=== PATIENT | male | born 1990 | race Caucasian/White ===

== ENCOUNTER 2017-08-02 04:48 | Emergency (ER) | payer BC ==
[~2017-08-02] VITALS: Ht 198.1 cm; Wt 181.5 kg
[2017-08-02 04:51] VITALS: TEMP 37.1; Ht 198.1 cm; Wt 181.5 kg
--- NOTE | 2017-08-02 05:13 | EMERGENCY ROOM VISIT NOTE ---
History Report prepared by Farhan: Jhony Rice Under the Supervision of: Dr. Lisa Erickson D.O. First contact with patient: 04:56 Chief Complaint: ABDOMINAL PAIN Stated Complaint: ABDOMINAL AND BACK PAIN History of Present Illness The patient is a 27 year old male who presents to the Emergency Room with complaints of constant RUQ abdominal pain that began recently. Patient states the pain radiates to his back. He adds that pressure, movement, and lying down exacerbate the pain. He describes the pain as "dull". He adds that the pain is "sharp" with movement. He states he had similar symptoms a week ago. He has associated symptoms of nausea that began tonight. He denies vomiting. Patient adds that he took Aleve PM 3 hours ago. He states he ate noodles 4 hours ago. Patient states he has no health problems. Source of History: patient Onset: Recently Position: abdomen (RUQ) Quality: dull Timing: constant Modifying Factors (Worsening): movement, other (Pressure) Associated Symptoms: + nausea, No vomiting Review of Systems See HPI for pertinent positives & negatives. A total of 10 systems reviewed and were otherwise negative. Past Medical & Surgical Medical Problems: (1) Obesity Family History Hypertension Social History Smoking Status: Never Smoker Marital Status: single Occupation Status: employed Current/Historical Medications No Active Prescriptions or Reported Meds Allergies Coded Allergies: No Known Allergies (Unverified , 08/02/17) Physical Exam Vital Signs Date Time Temp Pulse Resp B/P (MAP) Pulse Ox O2 Delivery O2 Flow Rate FiO2 08/02/17 07:09 74 20 110/70 96 Room Air 08/02/17 05:30 81 08/02/17 04:51 37.1 76 20 187/112 98 Room Air Physical Exam General: Morbidly obese male patient who is uncomfortable on exam HEENT: Head - normocephalic and atraumatic Pupils are equal, round, and reactive to light. Extraocular eye muscles are intact, and sclera are anicteric. Nose - moist nasal mucosa without discharge. Mouth - moist buccal mucosa. Oropharynx is nonerythematous and there is no tonsillar exudate or edema noted. Neck: Supple; no cervical lymphadenopathy. Heart: Regular rate and rhythm. There is a normal S1 and S2 with no murmurs, clicks, or gallops appreciated. Lungs: Clear to auscultation bilaterally with no wheezes, rales, or rhonchi. Abdomen: Soft, completely nontender, nondistended, with good bowel sounds. There are no palpable pulsatile masses or hepatosplenomegaly. There is no guarding, rigidity, or rebound noted. Extremities: No evidence of cyanosis, clubbing, or edema. There are easily palpable peripheral pulses. Skin: warm and dry with good turgor and no rashes. Medical Decision & Procedures ER Provider Diagnostic Interpretation: Radiology results as stated below per my review and the radiologist's interpretation: CHEST 2 VIEWS ROUTINE HISTORY: 27 years-old Male right lower chest pain acute atypical right-sided chest pain COMPARISON: Portable chest radiograph 2013 TECHNIQUE: PA and lateral views of the chest FINDINGS: Cardiomediastinal and hilar silhouettes are within normal limits. Mild right hemidiaphragmatic elevation. No pneumothorax, pleural effusion, focal airspace consolidation or overt pulmonary edema. The bones of the chest appear grossly intact. IMPRESSION: No acute process. The above report was generated using voice recognition software. It may contain grammatical, syntax or spelling errors. Electronically signed by: Jamie Berg M.D. 08/02/2017 6:47 AM GALLBLADDER-ABD LIMITED HISTORY: 27 years-old Male eval for RUQ pain acute right upper quadrant abdominal pain COMPARISON: Chest radiograph 6 of same day TECHNIQUE: Multiple real-time sonographic images of the abdominal right upper quadrant were obtained assessing grayscale appearance and color flow FINDINGS: Study is limited secondary to patient body habitus. Imaged pancreas is unremarkable. There is increased echogenicity with poor through transmission of the liver suggesting hepatic steatosis. No focal hepatic mass lesions or intrahepatic biliary ductal dilation identified. There is minimal layering sludge within the gallbladder lumen. No wall thickening or pericholecystic fluid collections. No shadowing cholelithiasis identified. Common bile duct is normal, 3.7 mm. Imaged right kidney is unremarkable without hydronephrosis. IMPRESSION: 1. Minimal layering gallbladder sludge without cholelithiasis or sonographic evidence of acute cholecystitis. 2. No biliary ductal dilation. 3. Hepatic steatosis. The above report was generated using voice recognition software. It may contain grammatical, syntax or spelling errors. Electronically signed by: Jamie Berg M.D. 08/02/2017 6:58 AM Laboratory Results 08/02/17 05:20 Red Blood Count 4.83, Mean Corpuscular Volume 85.5, Mean Corpuscular Hemoglobin 28.8, Mean Corpuscular Hemoglobin Concent 33.7, Mean Platelet Volume 10.9, Neutrophils (%) (Auto) 63.1, Lymphocytes (%) (Auto) 25.1, Monocytes (%) (Auto) 9.6, Eosinophils (%) (Auto) 1.6, Basophils (%) (Auto) 0.2, Neutrophils # (Auto) 7.70, Lymphocytes # (Auto) 3.07, Monocytes # (Auto) 1.17, Eosinophils # (Auto) 0.20, Basophils # (Auto) 0.02 08/02/17 05:20 Test 08/02/17 05:20 White Blood Count 12.21 K/uL (4.8-10.8) Red Blood Count 4.83 M/uL (4.7-6.1) Hemoglobin 13.9 g/dL (14.0-18.0) Hematocrit 41.3 % (42-52) Mean Corpuscular Volume 85.5 fL (80-100) Mean Corpuscular Hemoglobin 28.8 pg (25-34) Mean Corpuscular Hemoglobin Concent 33.7 g/dl (32-36) Platelet Count 215 K/uL (130-400) Mean Platelet Volume 10.9 fL (7.4-10.4) Neutrophils (%) (Auto) 63.1 % Lymphocytes (%) (Auto) 25.1 % Monocytes (%) (Auto) 9.6 % Eosinophils (%) (Auto) 1.6 % Basophils (%) (Auto) 0.2 % Neutrophils # (Auto) 7.70 K/uL (1.4-6.5) Lymphocytes # (Auto) 3.07 K/uL (1.2-3.4) Monocytes # (Auto) 1.17 K/uL (0.11-0.59) Eosinophils # (Auto) 0.20 K/uL (0-0.5) Basophils # (Auto) 0.02 K/uL (0-0.2) RDW Standard Deviation 42.0 fL (36.4-46.3) RDW Coefficient of Variation 13.4 % (11.5-14.5) Immature Granulocyte % (Auto) 0.4 % Immature Granulocyte # (Auto) 0.05 K/uL (0.00-0.02) Anion Gap 4.0 mmol/L (3-11) Est Creatinine Clear Calc Drug Dose 172.3 ml/min Estimated GFR () 100.2 Estimated GFR (Non- 86.4 BUN/Creatinine Ratio 12.8 (10-20) Calcium Level 8.9 mg/dl (8.5-10.1) Total Bilirubin 0.4 mg/dl (0.2-1) Direct Bilirubin < 0.1 mg/dl (0-0.2) Aspartate Amino Transf (AST/SGOT) 22 U/L (15-37) Alanine Aminotransferase (ALT/SGPT) 40 U/L (12-78) Alkaline Phosphatase 59 U/L (45-117) Total Protein 7.3 gm/dl (6.4-8.2) Albumin 3.5 gm/dl (3.4-5.0) Lipase 86 U/L (73-393) Laboratory results per my review. Medications Administered Medications (Trade) Dose Ordered Sig/Elle Route Start Time Stop Time Status Last Admin Dose Admin Ondansetron HCl (Zofran Inj) 4 mg NOW STAT IV 08/02/17 05:35 08/02/17 05:36 DC 08/02/17 05:42 4 MG Hydromorphone HCl (Dilaudid Inj) 2 mg NOW STAT IV 08/02/17 05:35 08/02/17 05:36 DC 08/02/17 05:42 2 MG Procedure Dilaudid Inj 2mg IV, Zofran Inj 4mg IV ECG Indication: abdominal pain Rate (beats per minute): 88 Rhythm: normal sinus Findings: no acute ischemic change, no ectopy Change: Patient's electrocardiogram was interpreted by me. ED Course 0500: The patient was evaluated in room B6. A complete history and physical examination were performed. Nursing notes and previous electronic medical records were reviewed. IV lock was established and labs were drawn as above. 0535: Dilaudid Inj 2mg IV, Zofran Inj 4mg IV. The patient went proximal to the right upper quadrant as described above. 0720: Upon reevaluation, patient states he had a significant relief of pain. I discussed findings and results with him. He verbalized agreement of the treatment plan. He was discharged home. Medical Decision The patient is a 27 year old male who presents to the ED with RUQ abdominal pain. Differential diagnosis includes pancreatitis, cholecystitis, muscle strain , and pneumonia. Lab results show white count = 12.2, hemoglobin = 13.9, glucose = 107, normal renal function, normal LFTs, and normal lipase. The patient presents with discomfort in the entire upper abdomen and right upper back. He believed that his pain was most concentrated in the right upper quadrant of the abdomen. However, the physical exam, he had no reproducible symptoms. Ultrasound was unremarkable. LFTs were normal. The patient's pain was relieved with the IV Dilaudid. I've encouraged him to follow bland diet and see his PCP in the next couple of days the pain persists. If symptoms worsen, he should return here to the emergency department. Medication Reconcilliation Current Medication List: was personally reviewed by me Blood Pressure Screening Patient's blood pressure: Normal blood pressure Blood pressure disposition: Did not require urgent referral Impression Primary Impression: Right upper quadrant abdominal pain Additional Impression: Right-sided back pain Scribe Attestation The scribe's documentation has been prepared under my direction and personally reviewed by me in its entirety. I confirm that the note above accurately reflects all work, treatment, procedures, and medical decision making performed by me. Departure Information Dispostion Home / Self-Care Prescriptions No Active Prescriptions or Reported Meds Referrals No Doctor, Assigned (PCP) Forms HOME CARE DOCUMENTATION FORM, IMPORTANT VISIT INFORMATION Patient Instructions Abdominal Pain, My [facility] Additional Instructions Rest. Take a bland diet and plenty of clear liquids Follow up with PCP if pain continues. Return to the ER if symptoms worsen. Problem Qualifiers Additional Impression: Right-sided back pain Back pain location: thoracic back pain Chronicity: acute Qualified Codes: M54.6 - Pain in thoracic spine
[2017-08-02 05:30] LABS: BASO % 0.2 %; BASO ABS # 0.02 K/uL (0-0.2); EOS % 1.6 %; HEMATOCRIT 41.3 % (42-52); HEMOGLOBIN 13.9 g/dL (14.0-18.0); IG# 0.05 K/uL (0.00-0.02); LYMPH % 25.1 %; LYMPH ABS # 3.07 K/uL (1.2-3.4); MEAN CELL VOLUME 85.5 fL (80-100); MEAN CORPUSCULAR HEMOGLOBIN 28.8 pg (25-34); MEAN CORPUSCULAR HGB CONC 33.7 g/dl (32-36); MEAN PLATELET VOLUME 10.9 fL (7.4-10.4); MONO % 9.6 %; MONO ABS # 1.17 K/uL (0.11-0.59); NEUT % 63.1 %; PLATELET COUNT 215 K/uL (130-400); RED CELL DISTRIBUTION WIDTH CV 13.4 % (11.5-14.5); WHITE BLOOD COUNT 12.21 K/uL (4.8-10.8)
[2017-08-02] MEDS ORDERED: HYDROmorphone INJ 2 MG/ML SYR/VIAL IV STA (05:35)
[2017-08-02] MEDS ORDERED: ONDANSETRON INJ 2 MG/ML 2 ML VIAL IV STA (05:35)
[2017-08-02 05:49] LABS: ALBUMIN 3.5 gm/dl (3.4-5.0); ALT/SGPT 40 U/L (12-78); AST/SGOT 22 U/L (15-37); BLOOD UREA NITROGEN 15 mg/dl (7-18); CALCIUM 8.9 mg/dl (8.5-10.1); CARBON DIOXIDE 29 mmol/L (21-32); CREATININE 1.14 mg/dl (0.60-1.40); GLUCOSE 107 mg/dl (70-99); LIPASE 86 U/L (73-393); POTASSIUM 3.9 mmol/L (3.5-5.1); SODIUM 139 mmol/L (136-145)
[2017-08-02 05:52] LABS: ALKALINE PHOSPHATASE 59 U/L (45-117); TOTAL PROTEIN 7.3 gm/dl (6.4-8.2)
--- NOTE | 2017-08-02 06:48 | DIAGNOSTIC IMAGING REPORT ---
CHEST 2 VIEWS ROUTINE HISTORY: 27 years-old Male right lower chest pain acute atypical right-sided chest pain COMPARISON: Portable chest radiograph 2013 TECHNIQUE: PA and lateral views of the chest FINDINGS: Cardiomediastinal and hilar silhouettes are within normal limits. Mild right hemidiaphragmatic elevation. No pneumothorax, pleural effusion, focal airspace consolidation or overt pulmonary edema. The bones of the chest appear grossly intact. IMPRESSION: No acute process. The above report was generated using voice recognition software. It may contain grammatical, syntax or spelling errors. Electronically signed by: Jamie Berg M.D. 08/02/2017 6:47 AM Dictated Date/Time: 08/02/2017 6:45 AM
--- NOTE | 2017-08-02 07:00 | DIAGNOSTIC IMAGING REPORT ---
GALLBLADDER-ABD LIMITED HISTORY: 27 years-old Male eval for RUQ pain acute right upper quadrant abdominal pain COMPARISON: Chest radiograph 6 of same day TECHNIQUE: Multiple real-time sonographic images of the abdominal right upper quadrant were obtained assessing grayscale appearance and color flow FINDINGS: Study is limited secondary to patient body habitus. Imaged pancreas is unremarkable. There is increased echogenicity with poor through transmission of the liver suggesting hepatic steatosis. No focal hepatic mass lesions or intrahepatic biliary ductal dilation identified. There is minimal layering sludge within the gallbladder lumen. No wall thickening or pericholecystic fluid collections. No shadowing cholelithiasis identified. Common bile duct is normal, 3.7 mm. Imaged right kidney is unremarkable without hydronephrosis. IMPRESSION: 1. Minimal layering gallbladder sludge without cholelithiasis or sonographic evidence of acute cholecystitis. 2. No biliary ductal dilation. 3. Hepatic steatosis. The above report was generated using voice recognition software. It may contain grammatical, syntax or spelling errors. Electronically signed by: Jamie Berg M.D. 08/02/2017 6:58 AM Dictated Date/Time: 08/02/2017 6:57 AM
[2017-08-02 07:09] VITALS: BP 110/70; PULSE 74; O2SAT 96
== END 2017-08-02 07:48 | disposition home or self-care (01) ==
LOC: C.EDB 04:49
DX: R10.11 Right upper quadrant pain (principal); M54.6 Pain in thoracic spine; R11.0 Nausea; E66.9 Obesity, unspecified; Z82.49 Family history of ischemic heart disease and other diseases of the circulatory system

== ENCOUNTER 2020-06-23 16:15 | Inpatient (IN) ==
[2020-06-23] MEDS ORDERED: ALBUTEROL HFA 8 GM INHALER INH ONE (16:41)
--- NOTE | 2020-06-23 16:43 | Emergency Department Note ---
History of Present Illness General Chief complaint: Shortness of Breath/Dyspnea Stated complaint: covid+, sob Time Seen by Provider: 06/23/20 16:24 History of Present Illness Maximum Pain Intensity: 7 This is a 30-year-old male that presents to the emergency department via private vehicle with complaints "Covid positive, shortness of breath". The patient notes a past medical history significant for that of hypertension. He denies any other surgery or medicinal allergies. The patient notes that June 13 he began with symptoms of Covid. He notes that initially it was some sinus congestion and then was tested on the and found to be Covid positive. He notes that he developed respiratory symptoms today. He feels as though there is a heavy pressure/weight on his chest. He cannot sleep secondary to this. He feels as though his mind is in a fog. He does have a mild cough. No chest pain. He does have loss of taste and smell. Overall discomfort 01/19. Home Medications Medication Instructions Recorded Confirmed Type lisinopril-hydrochlorothiazide 1 tab PO DAILY 06/05/19 06/23/20 History Allergies Allergy/AdvReac Type Severity Reaction Status Date / Time No Known Allergies Allergy Unverified 06/23/20 19:14 Past Med/Surg History Medical History (Updated 06/23/20 @ 23:32 by Jeff Sarabia PA-C) HTN (hypertension) Surgical History No pertinent past surgical history Social History Smoking Status: Never smoker Hx Alcohol Use: No Hx Substance Use: No Preferred Language: Albanian Communication Ability: Effective Beliefs That Will Affect Care: None Current Living Situation: Spouse and Family Feels Safe at Home: Yes Safety Concerns: Feels Safe At This Time Assistive Devices: CPAP Review of Systems A total of 10 systems reviewed and were otherwise negative Physical Exam Vital Signs Vital Signs - 24 hr 06/23/20 16:16 06/23/20 16:56 06/23/20 17:05 Temperature 36.5 C Temperature Source Oral Pulse Rate 102 H 96 H Pulse Rate from SpO2 Sensor Pulse Rhythm Regular Respiratory Rate 20 20 Respiratory Effort / Characteristics Non-Labored Non-Labored Respiratory Depth Normal Normal Blood Pressure 162/108 H Blood Pressure Mean 126 Pulse Oximetry 94 93 93 Oxygen Delivery Method Room Air Room Air Room Air Sepsis Recent Fever Within 48 Hours No Sepsis New/Unexplained Change in Mental Status No Sepsis Action Taken by Nursing No Action Required 06/23/20 17:08 06/23/20 17:30 06/23/20 18:01 Temperature Temperature Source Pulse Rate 95 H 98 H 96 H Pulse Rate from SpO2 Sensor 96 H 98 H 96 H Pulse Rhythm Respiratory Rate 17 18 Respiratory Effort / Characteristics Respiratory Depth Blood Pressure 131/86 141/82 H 144/91 H Blood Pressure Mean 92 101 100 Pulse Oximetry 93 91 91 Oxygen Delivery Method Sepsis Recent Fever Within 48 Hours Sepsis New/Unexplained Change in Mental Status Sepsis Action Taken by Nursing 06/23/20 19:37 06/23/20 20:01 Temperature Temperature Source Pulse Rate 93 H 90 Pulse Rate from SpO2 Sensor 94 H 91 H Pulse Rhythm Respiratory Rate 15 20 Respiratory Effort / Characteristics Respiratory Depth Blood Pressure 134/95 153/93 H Blood Pressure Mean 102 116 Pulse Oximetry 93 98 Oxygen Delivery Method Room Air Sepsis Recent Fever Within 48 Hours Sepsis New/Unexplained Change in Mental Status Sepsis Action Taken by Nursing VITAL SIGNS - Vital signs and nursing notes were reviewed. Stable, afebrile. GENERAL -30-year-old male appearing his stated age who is in no acute distress. Communicates well with provider and answers questions appropriately. SKIN - Without rashes. No meningeal or petechial rash. HEAD - NC/AT. EYES - PERRL with EOMI bilaterally. Sclera anicteric. EARS - No deformities of external structures noted on gross examination bilaterally. NOSE - Midline and without cyanosis. No epistaxis or purulent drainage noted. MOUTH/OROPHARYNX - Without perioral cyanosis. NECK - Neck with FROM. No nuchal rigidity. LUNGS - Chest wall symmetric without accessory muscle use, intercostals retractions, or central cyanosis. Normal vesicular breath sounds CTA B/L. No wheezes, rales, or rhonchi appreciated. CARDIAC - RRR with S1/S2. No murmur, rubs, or gallops appreciated. ABDOMEN - Abdominal contour without pulsations or visible masses. EXTREMITIES - No clubbing or peripheral cyanosis.+5/5 strength noted in UE/LE bilaterally. NEUROLOGIC - Cranial nerves II through XII grossly intact. PSYCH - A&O, and cooperates fully with examiner. Pt is very pleasant and interacts well with examiner. Course Administered Medications Discontinued Medications Albuterol (Albuterol Hfa 8 Gm Inhaler) 2 puffs INH NOW ONE Stop: 06/23/20 16:42 Last Admin: 06/23/20 17:10 Dose: 2 puffs Documented by: [id number] Dexamethasone (Dexamethasone Sod Inj 10 Mg/Ml Vial) 6 mg IV NOW ONE Stop: 06/23/20 18:56 Last Admin: 06/23/20 19:40 Dose: 6 mg Documented by: [id number] Ioversol (Optiray 320 125ml) 118 ml IV ONCE ONE Stop: 06/23/20 18:07 Last Admin: 06/23/20 18:08 Dose: 118 ml Documented by: [id number] Medical Decision Making Laboratory Data Result diagrams: 06/23/20 17:08 06/23/20 17:08 Lab Results 06/23/20 06/23/20 06/23/20 Range/Units 17:08 17:08 17:08 WBC 9.66 (4.8-10.8) K/uL RBC 4.80 (4.7-6.1) M/uL Hgb 13.5 L (14.0-18.0) g/dL Hct 40.2 L (42-52) % MCV 83.8 (80-100) fL MCH 28.1 (25-34) pg MCHC 33.6 (32-36) g/dL RDW Std Deviation 42.0 (36.4-46.3) fL RDW Coeff of Lenin 13.7 (11.5-14.5) % Plt Count 189 (130-400) K/uL MPV 10.8 H (7.4-10.4) fL Immature Gran % (Auto) 0.3 % Neut % (Auto) 73.7 % Lymph % (Auto) 16.3 % Will % (Auto) 9.6 % Eos % (Auto) 0.1 % Baso % (Auto) 0.0 % Neut # (Auto) 7.12 H (1.4-6.5) K/uL Lymph # (Auto) 1.57 (1.2-3.4) K/uL Will # (Auto) 0.93 H (0.11-0.59) K/uL Eos # (Auto) 0.01 (0-0.5) K/uL Baso # (Auto) 0.00 (0-0.2) K/uL Immature Gran # (Auto) 0.03 H (0.00-0.02) K/uL PT 10.9 (9.0-12.0) Seconds INR 1.0 (0.9-1.1) APTT 30.0 (21.0-31.0) Seconds PTT Ratio 1.1 Sodium 141 (136-145) mmol/L Potassium 3.6 (3.5-5.1) mmol/L Chloride 108 H (98-107) mmol/L Carbon Dioxide 29 (21-32) mmol/L Anion Gap 4.0 (3-11) BUN 11 (7-18) mg/dl Creatinine 0.90 (0.6-1.4) mg/dl Est Cr Clr Drug Dosing 192.0 ml/min Est GFR ( Amer) 130.5 Est GFR (Non-Af Amer) 112.6 BUN/Creatinine Ratio 12.7 (10-20) Glucose 105 H (70-99) mg/dl Calcium 8.2 L (8.5-10.1) mg/dl Magnesium 2.1 (1.8-2.4) mg/dl Total Bilirubin 0.4 (0.2-1) mg/dl AST 24 (15-37) U/L ALT 34 (12-78) U/L Alkaline Phosphatase 55 (45-117) U/L Troponin I < 0.015 (0-0.045) ng/ml Total Protein 7.7 (6.4-8.2) gm/dl Albumin 3.3 L (3.4-5.0) gm/dl Globulin 4.4 H (2.5-4.0) gm/dl Albumin/Globulin Ratio 0.7 L (0.9-2) Imaging Data Radiologist's Impression: CT ANGIOGRAM OF THE CHEST CLINICAL HISTORY: Atypical chest pain. Covid. COMPARISON STUDY: Chest x-ray dated 02/20/2014. TECHNIQUE: Following the IV administration of 118 cc of Optiray 320, CT angiogram of the chest was performed from the upper abdomen to the thoracic inlet utilizing the pulmonary embolus protocol. Images are reviewed in the axial, sagittal, and coronal planes. 3-D MIPS images are created and assessed. I V contrast was administered without complication. A dose lowering technique was utilized adhering to the principles of ALARA. The examination is degraded by large body habitus, and by streak artifact from the body wall abutting the CT gantry. There is suboptimal contrast opacification of the pulmonary arteries. CT DOSE: 957.03 mGy.cm FINDINGS: Thyroid: Imaged portions of the thyroid gland are normal in size and attenuation. Thoracic aorta: The thoracic aorta is normal in caliber and demonstrates standard 3-vessel arch anatomy. No dissection is seen. Pulmonary vasculature: The pulmonary trunk is normal in caliber. There are no filling defects identified in main or lobar pulmonary branches to suggest pulmonary embolus. Evaluation of the peripheral branches cannot be assessed due to poor contrast opacification. Heart: The heart is top normal in size and without pericardial effusion. Lungs and pleural spaces: Multifocal groundglass consolidation is seen throughout both lungs. The trachea and central airways are clear. There is no pleural effusion. Mediastinum: Mildly enlarged mediastinal lymph nodes are likely on a reactive basis. A right peritracheal node on image #213 measures 9 mm in short axis. Feder[place]: Clear. Axillae: There is no axillary lymphadenopathy. Upper abdomen: The liver appears enlarged and steatotic. Skeletal structures: No lytic or blastic bony lesions are seen. IMPRESSION: 1. There is no evidence of central pulmonary embolus in the main or lobar pul monary arteries. The segmental and subsegmental branches cannot be evaluated due to poor contrast opacification. 2. Multifocal groundglass consolidation is seen throughout both lungs and is typical for an infectious/inflammatory pneumonitis. Radiographic follow-up to resolution is recommended. 3. There is no pleural effusion. 4. Hepatomegaly and hepatic steatosis. ACT 112: Negative or not required by law. Electronically signed by: Shine Funes M.D. 06/23/2020 6:21 PM [facility] [place] Narrative Patient was seen and evaluated as above in room B5. Review was performed of nursing notes and vital signs. After obtaining a thorough history and physical examination the above work up was performed. He presents to us today with a Covid positive status. The patient has been doing quite well up until today. He has had symptoms of Covid for about 10 to 11 days now but notes that he has decompensated quite quickly today with onset of shortness of breath and a sensation of a very heavy weight on his chest. Options of care were discussed with the patient. IV access was established. Labs were drawn. Mild anemia. No emergent metabolic disturbance. Troponin negative. Case discussed with the attending physician. Decision was made to obtain a CTA of the chest. No evidence of PE. He does have multifocal groundglass consolidation throughout both lungs and at this time is likely secondary to COVID-19. Patient's oxygen saturation has been watched throughout his stay and at one point was 91%. This is at rest. I am concerned with the patient's quick onset of shortness of breath and chest heaviness now at day 10 of Covid symptoms. Further discussed this with the attending physician as well as the patient. It was felt that it may be in the patient's best interest to pursue inpatient management to trend clinical status. He was given 6 mg of IV dexamethasone here which is felt to be reasonable given presentation. Case discussed with the hospitalist. Please refer to further documentation regarding his stay. Patient amenable to staying. Case was discussed with the attending physician. EKG reveals normal sinus rhythm at a rate of 96 bpm. T wave inversion in lead I, 2, aVL. No ST elevation. QTc 459. Patient was seen during a period of high volume and acuity secondary to COVID-19 pandemic. An order was placed for continuous cardiac monitoring. The monitor shows a rate of 90 with sinus rhythm. GCS: 15 In the evaluation and treatment of this patient the following differential diagnoses were entertained: CA, PE, pericarditis, costochondritis, pneumothorax, hemothorax, COVID-19, among others Impression & Plan COVID-19, Pneumonia due to COVID-19 virus, Chest pressure, Cough, Shortness of breath Discharge Plan Visit Data Chief Complaint: Shortness of Breath/Dyspnea Stated Complaint: covid+, sob ED Provider: Simone Terry ED Midlevel Provider: Jeff Sarabia Discharge Problem: COVID-19, Pneumonia due to COVID-19 virus, Chest pressure, Cough, Shortness of breath Patient Disposition: Admitted As Inpatient Condition: Good Discharge Instructions Interventions: ED Discharge Assessment Last Done: 06/23/20 21:55
[2020-06-23 17:24] LABS: Eosinophils # (auto) 0.01 K/uL (0-0.5); Eosinophils % (auto) 0.1 %; Hematocrit (blood only) 40.2 % (42-52); Hemoglobin 13.5 g/dL (14.0-18.0); Immature Granulocytes # (auto) 0.03 K/uL (0.00-0.02); Immature Granulocytes % (auto) 0.3 %; Lymphocytes # (auto) 1.57 K/uL (1.2-3.4); Lymphocytes % (auto) 16.3 %; Mean Corpuscular Hemoglobin 28.1 pg (25-34); Mean Corpuscular Hgb Conc 33.6 g/dL (32-36); Mean Corpuscular Volume 83.8 fL (80-100); Mean Platelet Volume 10.8 fL (7.4-10.4); Monocytes # (auto) 0.93 K/uL (0.11-0.59); Monocytes % (auto) 9.6 %; Neutrophils # (auto) 7.12 K/uL (1.4-6.5); Neutrophils % (auto) 73.7 %; Platelet Count 189 K/uL (130-400); RDW Coefficient of Variation 13.7 % (11.5-14.5); White Blood Count 9.66 K/uL (4.8-10.8)
[2020-06-23 17:38] LABS: Partial Thromboplastin Ratio 1.1; Prothrombin Time 10.9 Seconds (9.0-12.0)
[2020-06-23 17:44] LABS: Alanine Aminotransferase 34 U/L (12-78); Albumin Level 3.3 gm/dl (3.4-5.0); Aspartate Aminotransferase 24 U/L (15-37); BUN Creatinine Ratio 12.7 (10-20); Blood Urea Nitrogen 11 mg/dl (7-18); Calcium 8.2 mg/dl (8.5-10.1); Carbon Dioxide 29 mmol/L (21-32); Chloride 108 mmol/L (98-107); Est GFR (African American) 130.5; Est GFR (Non-African American) 112.6; Glucose 105 mg/dl (70-99); Magnesium 2.1 mg/dl (1.8-2.4); Potassium 3.6 mmol/L (3.5-5.1); Sodium 141 mmol/L (136-145)
[2020-06-23 17:49] LABS: Albumin Globulin Ratio 0.7 (0.9-2); Alkaline Phosphatase 55 U/L (45-117); Bilirubin,Total 0.4 mg/dl (0.2-1); Globulin 4.4 gm/dl (2.5-4.0); Total Protein 7.7 gm/dl (6.4-8.2); Troponin I < 0.015 ng/ml (0-0.045)
[2020-06-23] MEDS ORDERED: OPTIRAY 320 125ml IV ONE (18:06)
--- NOTE | 2020-06-23 18:23 | CT Scan Report ---
CT ANGIOGRAM OF THE CHEST CLINICAL HISTORY: Atypical chest pain. Covid. COMPARISON STUDY: Chest x-ray dated 02/20/2014. TECHNIQUE: Following the IV administration of 118 cc of Optiray 320, CT angiogram of the chest was pe rformed from the upper abdomen to the thoracic inlet utilizing the pulmonary embolus protocol. Images are reviewed in the axial, sagittal, and coronal planes. 3-D MIPS images are created and assessed. I V contrast was administered without complication. A dose lowering technique was utilized adhering to the principles of ALARA. The examination is degraded by large body habitus, and by streak artifact f rom the body wall abutting the CT gantry. There is suboptimal contrast opacification of the pulmonary arteries. CT DOSE: 957.03 mGy.cm FINDINGS: Thyroid: Imaged portions of the thyroid gland are normal in size and attenuation. Thoracic aorta: The thoracic aorta is normal in caliber and demonstrates standard 3-vessel arch anato my. No dissection is seen. Pulmonary vasculature: The pulmonary trunk is normal in caliber. There are no filling defects identif ied in main or lobar pulmonary branches to suggest pulmonary embolus. Evaluation of the peripheral br anches cannot be assessed due to poor contrast opacification. Heart: The heart is top normal in size and without pericardial effusion. Lungs and pleural spaces: Multifocal groundglass consolidation is seen throughout both lungs. The tra tricia and central airways are clear. There is no pleural effusion. Mediastinum: Mildly enlarged mediastinal lymph nodes are likely on a reactive basis. A right peritrac heal node on image #[id number] measures 9 mm in short axis. Feder[place]: Clear. Axillae: There is no axillary lymphadenopathy. Upper abdomen: The liver appears enlarged and steatotic. Skeletal structures: No lytic or blastic bony lesions are seen. IMPRESSION: 1. There is no evidence of central pulmonary embolus in the main or lobar pulmonary arteries. The seg mental and subsegmental branches cannot be evaluated due to poor contrast opacification. 2. Multifocal groundglass consolidation is seen throughout both lungs and is typical for an infectiou s/inflammatory pneumonitis. Radiographic follow-up to resolution is recommended. 3. There is no pleural effusion. 4. Hepatomegaly and hepatic steatosis. ACT 112: Negative or not required by law. Electronically signed by: Shine Funes M.D. 06/23/2020 6:21 PM
[2020-06-23] MEDS ORDERED: DEXAMETHASONE SOD INJ 10 MG/ML VIAL IV ONE (18:55)
--- NOTE | 2020-06-23 21:53 | History and Physical Report ---
DATE OF ADMISSION: 06/23/2020 CHIEF COMPLAINT: Shortness of breath, chest pain. COVID positive. HISTORY OF PRESENT ILLNESS: A 30-year-old male with past medical history significant for morbid obesity, hypertension, sleep apnea, history of hyperuricemia, presents with shortness of breath and chest discomfort. The patient was diagnosed with COVID on 06/19/2020. He was having some mild congestion kind of symptoms since 06/14/2020. He thought it was a cold symptoms, but nothing much to worry. There was no runny nose or anything, but his coworkers tested positive. They got tested and he was tested positive on 06/19/2020, he had maximum temperature of 100 degrees, last night he has abdominal pains, 7/10 in severity with few episodes of diarrhea. He could not sleep well and today he was feeling chest pressure and shortness of breath, which prompted him to come to the ER. Earlier he had some loss of sense of smell and taste, but that came back yesterday. After sense of taste and smell came back, he is able to eat better, but otherwise denies any fatigue. No significant loss of appetite. Has occasional cough, no sore throat, no headache, no blurred vision, no earache, was nauseous earlier that resolved. Normal bladder movements. Currently, resting comfortably and hemodynamically stable. ALLERGIES: CATS. PAST MEDICAL HISTORY: As mentioned above. PAST SURGICAL HISTORY: None. MEDICATIONS: The patient is on, lisinopril/hydrochlorothiazide 20/25 one tablet daily. FAMILY HISTORY: Significant for aunt has cervical cancer. Mother had cervical cancer. Uncle has cancer. SOCIAL HISTORY: Single. No smoking, alcohol occasionally. No drug use. REVIEW OF SYMPTOMS: As per HPI. Rest of review of symptoms negative. PHYSICAL EXAMINATION: GENERAL: The patient is morbidly obese, not in acute distress. VITAL SIGNS: Temperature 36.5, pulse 93, respiratory 22, blood pressure 188/110, oxygen when he came in 91%, currently 97% on room air. HEENT: No pallor, no icterus. Pupils equal, round, reactive to light. Oral mucosa moist. NECK: No neck masses seen. CARDIOVASCULAR: S1, S2 heard, regular rate and rhythm, no murmur, no gallop. RESPIRATORY SYSTEM: Normal AP diameter. No accessory muscle use. No wheezing, no crackles. ABDOMEN: Soft, bowel sounds present, nontender. No distention. CENTRAL NERVOUS SYSTEM: Cranial nerves II-XII grossly intact, nonfocal. EXTREMITIES: No edema, no erythema. LABORATORY DATA: WBC 9.6, hemoglobin 13.5, hematocrit 40.2, platelets 189. PT 10.9, INR 1, APTT 30.1. Sodium 141, potassium 3.6, chloride 108, bicarbonate 29, BUN 11, creatinine 0.9, serum glucose 105, calcium 8.2, magnesium 2.1, total bilirubin 0.4, AST 24, ALT 34, alkaline phosphatase 55. Troponin I less than 0.015. EKG: Normal sinus rhythm, at a rate of 96, nonspecific T-wave abnormality, no significant change was found. IMAGING: CTA of the chest, there is no evidence of central pulmonary embolus in the main or lobar pulmonary arteries in segmental and subsegmental branches could not be evaluated due to poor contrast opacification, multifocal ground-glass consolidation is seen throughout both lungs and is typical for infectious inflammatory pneumonitis. There is no pleural effusion, hepatomegaly and hepatic steatosis. ASSESSMENT AND PLAN: This 30-year-old male presents with COVID pneumonia. 1. COVID pneumonia: Presented with sob and chest discomfort. Had symptoms since 06/14/2020 but diagnosed on 06/19/2020. Currently saturating okay, without oxygen. Because of his obesity, sleep apnea, hypertension risk factor, we are going to observe in the hospital. He is started on dexamethasone, Decadron, which we will continue. If sats drop will start on remdesivir. Closely monitor in the tele. Followup troponins in a.m. and D-dimer in a.m. 2. Hypertension. Continue home lisinopril hydrochlorothiazide, he is placed on p.o. clonidine p.r.n. 3. Obesity, needs counseling. 4. Sleep apnea. Continue CPAP at bedtime. 5. Deep venous thrombosis prophylaxis, Lovenox. DISPOSITION: Closely monitor in tele. Expect to discharge home and follow with family doctor. PHIL
[2020-06-23] MEDS ORDERED: cloNIDine HCL 0.1 MG TAB PO PRN (22:25)
[2020-06-23] MEDS ORDERED: ALBUTEROL HFA 8 GM INHALER INH PRN (22:25)
[2020-06-23] MEDS ORDERED: ACETAMINOPHEN 325 MG TAB PO PRN (22:25)
[2020-06-23] MEDS ORDERED: NITROGLYCERIN SL 0.4 MG/TAB TAB SL PRN (22:25)
[2020-06-23] MEDS: ENOXAPARIN INJ 40 MG/0.4 ML SYR SQ SCH (23:49)
[2020-06-24 06:09] LABS: Basophils # (auto) 0.01 K/uL (0-0.2); Basophils % (auto) 0.2 %; Hematocrit (blood only) 41.2 % (42-52); Hemoglobin 13.7 g/dL (14.0-18.0); Immature Granulocytes # (auto) 0.02 K/uL (0.00-0.02); Immature Granulocytes % (auto) 0.3 %; Lymphocytes # (auto) 1.39 K/uL (1.2-3.4); Lymphocytes % (auto) 21.6 %; Mean Corpuscular Hemoglobin 27.8 pg (25-34); Mean Corpuscular Hgb Conc 33.3 g/dL (32-36); Mean Corpuscular Volume 83.6 fL (80-100); Mean Platelet Volume 11.7 fL (7.4-10.4); Monocytes # (auto) 0.51 K/uL (0.11-0.59); Monocytes % (auto) 7.9 %; Neutrophils # (auto) 4.52 K/uL (1.4-6.5); Platelet Count 211 K/uL (130-400); RDW Coefficient of Variation 13.8 % (11.5-14.5); RDW Standard Deviation 42.1 fL (36.4-46.3); Red Blood Count 4.93 M/uL (4.7-6.1); White Blood Count 6.45 K/uL (4.8-10.8)
[2020-06-24 06:17] LABS: D Dimer 410 ug/L FEU (0-500)
[2020-06-24 06:47] LABS: BUN Creatinine Ratio 12.6 (10-20); Blood Urea Nitrogen 10 mg/dl (7-18); Calcium 8.8 mg/dl (8.5-10.1); Carbon Dioxide 29 mmol/L (21-32); Chloride 107 mmol/L (98-107); Est GFR (African American) 137.7; Est GFR (Non-African American) 118.8; Glucose 124 mg/dl (70-99); Magnesium 2.6 mg/dl (1.8-2.4); Potassium 3.9 mmol/L (3.5-5.1); Sodium 139 mmol/L (136-145)
[2020-06-24 06:52] LABS: Ferritin 308.2 ng/ml (8-388); Troponin I < 0.015 ng/ml (0-0.045)
[2020-06-24] MEDS: LISINOPRIL/HCTZ 20/25MG 1 TAB PO SCH (08:03)
[2020-06-24] MEDS: ENOXAPARIN INJ 40 MG/0.4 ML SYR SQ SCH ×2 (09:21→20:43)
--- NOTE | 2020-06-24 13:03 | Hospitalist Progress Note ---
Date of Service June 24, 2020 Assessment & Plan (1) COVID-19: He was diagnosed with Covid on 06/19/2020 Please call for as found to be diagnosed with Covid on the same day He complains of shortness of breath and chest pain and was admitted last night through the emergency room He remained stable since admission and does not require any oxygen to maintain saturation He received IV Decadron and does not qualify for any other medication He has a young daughter at home and his is also diagnosed to have COVID-19 and remains asymptomatic at home He will be discharged home tomorrow if remains asymptomatic Discussed about isolation precautions that he and his family has to take to p revent spread of the disease (2) Pneumonia due to COVID-19 virus: Viral pneumonia and does not require any antibiotic (3) Obesity: With sleep apnea (4) HTN (hypertension): Remains on the upper side Admission and Anticipated Discharge Date Admission Date: June 23, 2020 Subjective 06/24/2020 The patient was seen and examined in medical telemetry unit He has diagnostic of Covid positive with shortness of breath and cough at presentation He denies any more symptoms since admission and he has been saturating well with room air Will be discharged tomorrow Review of Systems Review of Systems: All systems reviewed and are unremarkable except as noted below Respiratory: no cough, no chest congestion and no dyspnea Physical Exam Physical Exam: Lying in bed comfortably Constitutional: well developed, well nourished and + morbidly obese; no acute distress and not ill appearing Eyes: PERRL, conjunctivae normal, anicteric sclerae ENMT: external ear and nose normal, oropharynx normal Neck: trachea midline, no thyromegaly Respiratory: no respiratory distress Auscultation: lungs clear to auscultation bilaterally Cardiovascular: Rate/Rhythm: regular rate and regular rhythm Heart Sounds: no murmur Extremities: + edema (Trace edema bilaterally) Gastrointestinal (Abdomen): Inspection/Auscultation: normal bowel sounds; abdomen not distended Percussion/Palpation: abdomen soft; abdomen nontender Musculoskeletal: No acute arthritis in any joint Neurologic: PERRL, EOMI, accommodation nl, no face palsy, no dysarthria Psychiatric: A+Ox3, euthymic affect Lymphatic: no cervical or axillary lymphadenopathy Results & Data Results & Data ([facility]) Vital Signs (Past 12 Hours) Vital Signs Temp Pulse Pulse Resp BP Pulse Ox 06/24/20 09:32 95 06/24/20 08:07 36.7 C 81 18 149/93 H 94 06/24/20 07:11 83 06/24/20 04:26 36.7 C 79 19 138/88 94 Laboratory Results Short CBC 06/23/20 06/24/20 Range/Units 17:08 05:32 WBC 9.66 6.45 (4.8-10.8) K/uL Hgb 13.5 L 13.7 L (14.0-18.0) g/dL Hct 40.2 L 41.2 L (42-52) % Plt Count 189 211 (130-400) K/uL BMP 06/23/20 06/24/20 17:08 05:32 Sodium 141 139 Potassium 3.6 3.9 Chloride 108 H 107 Carbon Dioxide 29 29 BUN 11 10 Creatinine 0.90 0.79 Glucose 105 H 124 H Calcium 8.2 L 8.8 Cardiac Enzymes 06/23/20 06/24/20 Range/Units 17:08 05:32 Troponin I < 0.015 < 0.015 (0-0.045) ng/ml Liver Function 06/23/20 Range/Units 17:08 Total Bilirubin 0.4 (0.2-1) mg/dl AST 24 (15-37) U/L ALT 34 (12-78) U/L Alkaline Phosphatase 55 (45-117) U/L Albumin 3.3 L (3.4-5.0) gm/dl Medications Administered Current Inpatient Medications Acetaminophen (Acetaminophen 325 Mg Tab) 650 mg PO Q4H PRN PRN Reason: Pain or Fever Stop: 07/23/20 22:24 Albuterol (Albuterol Hfa 8 Gm Inhaler) 2 puffs INH Q4H PRN PRN Reason: Shortness Of Breath Or Wheezing Stop: 07/23/20 22:24 Clonidine HCl (Clonidine Hcl 0.1 Mg Tab) 0.1 mg PO Q4H PRN PRN Reason: Hypertension Stop: 07/23/20 22:24 Enoxaparin Sodium (Enoxaparin Inj 40 Mg/0.4 Ml Syr) 40 mg SQ Q12 MONIK Stop: 07/23/20 22:24 Last Admin: 06/24/20 09:21 Dose: 40 mg Documented by: Lisinopril/HCTZ (Lisinopril/Hctz 20/25mg 1 Tab) 1 tab PO DAILY MONIK Stop: 07/24/20 08:59 Last Admin: 06/24/20 08:03 Dose: 1 tab Documented by: Dexamethasone Sodium Phosphate (6 mg/ Syringe) 1.5 mls @ 1 mls/min IV Q24H MONIK Stop: 07/03/20 20:02 Nitroglycerin (Nitroglycerin Sl 0.4 Mg/Tab Tab) 0.4 mg SL UD PRN PRN Reason: Chest Pain Stop: 07/23/20 22:24
[2020-06-24] MEDS ORDERED: DEXAMETHASONE SOD INJ 10 MG/ML VIAL IV SCH (20:00)
[2020-06-24] MEDS ORDERED: dexAMETHasone 6 MG in SYRINGE 0 ML IV SCH (20:00)
[2020-06-25 06:00] LABS: D Dimer 340 ug/L FEU (0-500)
[2020-06-25 06:03] LABS: Basophils # (auto) 0.01 K/uL (0-0.2); Basophils % (auto) 0.1 %; Hematocrit (blood only) 44.1 % (42-52); Hemoglobin 14.7 g/dL (14.0-18.0); Immature Granulocytes # (auto) 0.04 K/uL (0.00-0.02); Immature Granulocytes % (auto) 0.4 %; Lymphocytes # (auto) 1.92 K/uL (1.2-3.4); Mean Corpuscular Hgb Conc 33.3 g/dL (32-36); Mean Platelet Volume 11.2 fL (7.4-10.4); Monocytes # (auto) 0.77 K/uL (0.11-0.59); Monocytes % (auto) 7.6 %; Neutrophils # (auto) 7.39 K/uL (1.4-6.5); Neutrophils % (auto) 72.9 %; Platelet Count 245 K/uL (130-400); RDW Coefficient of Variation 13.6 % (11.5-14.5); RDW Standard Deviation 41.8 fL (36.4-46.3); Red Blood Count 5.25 M/uL (4.7-6.1); White Blood Count 10.13 K/uL (4.8-10.8)
[2020-06-25 06:16] LABS: BUN Creatinine Ratio 17.4 (10-20); Creatinine Clr Calc Pharmacy 201.2 ml/min; Est GFR (Non-African American) 114.7; Potassium 3.9 mmol/L (3.5-5.1)
[2020-06-25 06:18] LABS: C Reactive Protein 4.44 mg/dl (0-0.29)
--- NOTE | 2020-06-25 06:32 | Electrocardiogram Report ---
Test Reason : Blood Pressure : / mmHG Vent. Rate : 096 BPM Atrial Rate : 096 BPM P-R Int : 144 ms QRS Dur : 084 ms QT Int : 364 ms P-R-T Axes : 013 025 075 degrees QTc Int : 459 ms Normal sinus rhythm Nonspecific T wave abnormality Abnormal ECG When compared with ECG of 02-AUG-2017 05:13, No significant change was found Confirmed by Shahab Carter ([id number]) on 06/25/2020 6:31:51 AM Referred By: REFERRED SELF Confirmed By:Shahab Carter
--- NOTE | 2020-06-25 06:45 | Electrocardiogram Report ---
Test Reason : Blood Pressure : / mmHG Vent. Rate : 082 BPM Atrial Rate : 082 BPM P-R Int : 134 ms QRS Dur : 086 ms QT Int : 362 ms P-R-T Axes : 001 024 079 degrees QTc Int : 422 ms Normal sinus rhythm Nonspecific T wave abnormality Abnormal ECG When compared with ECG of 23-JUN-2020 16:56, (unconfirmed) No significant change was found Confirmed by Shahab Carter ([id number]) on 06/25/2020 6:45:13 AM Referred By: REFERRED SELF Confirmed By:Shahab Carter
[2020-06-25] MEDS: LISINOPRIL/HCTZ 20/25MG 1 TAB PO SCH (07:51)
[2020-06-25] MEDS: ENOXAPARIN INJ 40 MG/0.4 ML SYR SQ SCH (07:51)
--- NOTE | 2020-06-25 10:49 | Hospitalist Progress Note ---
Date of Service June 25, 2020 Assessment & Plan (1) COVID-19: He was diagnosed with Covid on 06/19/2020 Please call for as found to be diagnosed with Covid on the same day He complains of shortness of breath and chest pain and was admitted last night through the emergency room He remained stable since admission and does not require any oxygen to maintain saturation He received IV Decadron and does not qualify for any other medication Remains stable without any symptoms Will be discharged home this morning and will finish the course of Decadron has an outpatient He has a young daughter at home and his is also diagnosed to have COVID-19 and remains asymptomatic at home He will be discharged home tomorrow if remains asymptomatic Discussed about isolation precautions that he and his family has to take to prevent spread of the disease He was advised to take all the precautions with the Covid disease (2) Pneumonia due to COVID-19 virus: Viral pneumonia and does not require any antibiotic (3) Obesity: With sleep apnea No acute issue (4) HTN (hypertension): Remains on the upper side Admission and Anticipated Discharge Date Admission Date: June 23, 2020 Subjective 06/24/2020 The patient was seen and examined in medical telemetry unit He has diagnostic of Covid positive with shortness of breath and cough at presentation He denies any more symptoms since admission and he has been saturating well with room air Will be discharged tomorrow 06/25/2020 Patient was seen in medical telemetry unit He has been feeling a lot better today and he does not need any oxygen to maintain saturation Denies any cough, shortness of breath, palpitation, nausea and or vomiting Review of Systems Review of Systems: All systems reviewed and are unremarkable except as noted below Physical Exam Physical Exam: Sitting at the edge of the bed without any symptoms Constitutional: well developed, well nourished and + morbidly obese; no acute distress and not ill appearing Eyes: PERRL, conjunctivae normal, anicteric sclerae ENMT: external ear and nose normal, oropharynx normal Neck: trachea midline, no thyromegaly Respiratory: no respiratory distress Auscultation: lungs clear to auscultation bilaterally and + diminished lung sounds (Very minimal decreased breath sounds the bases without any crackles) Cardiovascular: Rate/Rhythm: regular rate and regular rhythm Heart Sounds: no murmur Extremities: + edema (Trace edema bilaterally) Gastrointestinal (Abdomen): Inspection/Auscultation: normal bowel sounds; abdomen not distended Percussion/Palpation: abdomen soft; abdomen nontender Neurologic: PERRL, EOMI, accommodation nl, no face palsy, no dysarthria Psychiatric: A+Ox3, euthymic affect Lymphatic: no cervical or axillary lymphadenopathy Results & Data Results & Data ([facility]) Vital Signs (Past 12 Hours) Vital Signs Temp Pulse Pulse Resp BP Pulse Ox 06/25/20 07:54 36.7 C 86 18 151/86 H 96 06/25/20 07:16 84 06/25/20 04:00 36.8 C 80 18 146/84 H 96 06/25/20 01:56 80 Laboratory Results Short CBC 06/25/20 Range/Units 05:28 WBC 10.13 (4.8-10.8) K/uL Hgb 14.7 (14.0-18.0) g/dL Hct 44.1 (42-52) % Plt Count 245 (130-400) K/uL BMP 06/25/20 05:28 Sodium 139 Potassium 3.9 Chloride 104 Carbon Dioxide 30 BUN 15 Creatinine 0.86 Glucose 122 H Calcium 9.0 Medications Administered Current Inpatient Medications Acetaminophen (Acetaminophen 325 Mg Tab) 650 mg PO Q4H PRN PRN Reason: Pain or Fever Stop: 07/23/20 22:24 Albuterol (Albuterol Hfa 8 Gm Inhaler) 2 puffs INH Q4H PRN PRN Reason: Shortness Of Breath Or Wheezing Stop: 07/23/20 22:24 Clonidine HCl (Clonidine Hcl 0.1 Mg Tab) 0.1 mg PO Q4H PRN PRN Reason: Hypertension Stop: 07/23/20 22:24 Enoxaparin Sodium (Enoxaparin Inj 40 Mg/0.4 Ml Syr) 40 mg SQ Q12 MONIK Stop: 07/23/20 22:24 Last Admin: 06/25/20 07:51 Dose: 40 mg Documented by: Lisinopril/HCTZ (Lisinopril/Hctz 20/25mg 1 Tab) 1 tab PO DAILY MONIK Stop: 07/24/20 08:59 Last Admin: 06/25/20 07:51 Dose: 1 tab Documented by: Dexamethasone Sodium Phosphate (6 mg/ Syringe) 1.5 mls @ 1 mls/min IV Q24H [facility] Stop: 07/03/20 20:02 Last Admin: 06/24/20 20:43 Dose: 1 mls/min Documented by: Nitroglycerin (Nitroglycerin Sl 0.4 Mg/Tab Tab) 0.4 mg SL UD PRN PRN Reason: Chest Pain Stop: 07/23/20 22:24
--- NOTE | 2020-06-26 08:42 | Discharge Summary ---
Date of Service GENERAL: The patient is morbidly obese, not in acute distress. VITAL SIGNS: Temperature 36.5, pulse 93, respiratory 22, blood pressure 188/110, oxygen when he came in 91%, currently 97% on room air. HEENT: No pallor, no icterus. Pupils equal, round, reactive to light. Oral mucosa moist. NECK: No neck masses seen. CARDIOVASCULAR: S1, S2 heard, regular rate and rhythm, no murmur, no gallop. RESPIRATORY SYSTEM: Normal AP diameter. No accessory muscle use. No wheezing, no crackles. ABDOMEN: Soft, bowel sounds present, nontender. No distention. CENTRAL NERVOUS SYSTEM: Cranial nerves II-XII grossly intact, nonfocal. EXTREMITIES: No edema, no erythema.June 26, 2020 Admission HPI Per Admitting Provider DICTATED BY: Pipo Brown MD DATE OF ADMISSION: 06/23/2020 CHIEF COMPLAINT: Shortness of breath, chest pain. COVID positive. HISTORY OF PRESENT ILLNESS: A 30-year-old male with past medical history significant for morbid obesity, hypertension, sleep apnea, history of hyperuricemia, presents with shortness of breath and chest discomfort. The patient was diagnosed with COVID on 06/19/2020. He was having some mild congestion kind of symptoms since 06/14/2020. He thought it was a cold symptoms, but nothing much to worry. There was no runny nose or anything, but his coworkers tested positive. They got tested and he was tested positive on 06/19/2020, he had maximum temperature of 100 degrees, last night he has abdominal pains, 7/10 in severity with few episodes of diarrhea. He could not sleep well and today he was feeling chest pressure and shortness of breath, which prompted him to come to the ER. Earlier he had some loss of sense of smell and taste, but that came back yesterday. After sense of taste and smell came back, he is able to eat better, but otherwise denies any fatigue. No significant loss of appetite. Has occasional cough, no sore throat, no headache, no blurred vision, no earache, was nauseous earlier that resolved. Normal bladder movements. Currently, resting comfortably and hemodynamically stable. Principal Diagnosis COVID-19 infection, asymptomatic Discharge Exam Constitutional well developed, well nourished and + morbidly obese; no acute distress and not ill appearing Eyes PERRL, conjunctivae normal, anicteric sclerae ENMT external ear and nose normal, oropharynx normal Neck trachea midline, no thyromegaly Respiratory no respiratory distress Auscultation: lungs clear to auscultation bilaterally and + diminished lung sounds (Very minimal decreased breath sounds the bases without any crackles) Cardiovascular Rate/Rhythm: regular rate and regular rhythm Heart Sounds: no murmur Extremities: + edema (Trace edema bilaterally) Gastrointestinal (Abdomen) Inspection/Auscultation: normal bowel sounds; abdomen not distended Percussion/Palpation: abdomen soft; abdomen nontender Neurologic PERRL, EOMI, accommodation nl, no face palsy, no dysarthria Psychiatric A+Ox3, euthymic affect Lymphatic no cervical or axillary lymphadenopathy Discharge Data Allergies Allergy/AdvReac Type Severity Reaction Status Date / Time No Known Allergies Allergy Unverified 06/23/20 19:14 Consultations 06/23/20 19:08 ED Decision to Admit Stat 06/23/20 22:25 Consult Case Management - Discharge Planning Routine Ordered Studies 06/23/20 16:41 CT angio chest PE protocol Stat Hospital Course (1) COVID-19: He was diagnosed with Covid on 06/19/2020 Please call for as found to be diagnosed with Covid on the same day He complains of shortness of breath and chest pain and was admitted last night through the emergency room He remained stable since admission and does not require any oxygen to maintain saturation He received IV Decadron and does not qualify for any other medication Remains stable without any symptoms Will be discharged home this morning and will finish the course of Decadron has an outpatient He has a young daughter at home and his is also diagnosed to have COVID-19 and remains asymptomatic at home He will be discharged home tomorrow if remains asymptomatic Discussed about isolation precautions that he and his family has to take to prevent spread of the disease He was advised to take all the precautions with the Covid disease (2) Pneumonia due to COVID-19 virus: Viral pneumonia and does not require any antibiotic (3) Obesity: With sleep apnea No acute issue (4) HTN (hypertension): Remains on the upper side Total Time Total Time Spent Total Time Spent (In Minutes): 35 minutes Total Time Includes: Examination of the Patient, Discharge Planning, Medication Reconciliation and Communication With Other Providers Discharge Plan Discharge Items Patient Disposition: Home - Self-Care Reason For Visit: SOB Discharge Diagnosis: COVID-19 infection, asymptomatic Condition on Discharge: Good Activity: Resume your previous activity Non-emergency contact: Primary Care Provider Call non-emergency contact if: you have any medication questions and your symptoms worsen Follow-up/Referrals: Chriss Enciso MD [Primary Care Provider] - (Date & Time 06/29/2020 7:20 AM Provider Kely [facility] PLEASE NOTE THAT THIS IS A TELEVIDEO APPOINTMENT. PLEASE FOLLOW THE INSTRUCTIONS PROVIDED IN AN EMAIL YOU WILL RECEIVE. IF YOU HAVE ANY QUESTIONS, PLEASE CALL ) Diet: Heart Healthy Addtl Attending Provider Instructions: Please use mask all the time during the next 8 days except during eating Maintain social distancing Follow all the precaution for the COVID-19 infection as follows.Home Isolation COVID-19 Instructions The following information about Home Isolation is from the CDC Website: https://www.cdc.gov/coronavirus/2019-ncov/hcp/wftckmyd-ffmdphq-pvdvrd.html Stay home except to get medical care People who are mildly ill with COVID-19 are able to isolate at home during their illness. You should restrict activities outside your home, except for getting medical care. Do not go to work, school, or public areas. Avoid using public transportation, ride-sharing, or taxis. Separate yourself from other people and animals in your home People: As much as possible, you should stay in a specific room and away from other people in your home. Also, you should use a separate bathroom, if available. Animals: You should restrict contact with pets and other animals while you are sick with COVID-19, just like you would around other people. Although there have not been reports of pets or other animals becoming sick with COVID-19, it is still recommended that people sick with COVID-19 limit contact with animals until more information is known about the virus. When possible, have another member of your household care for your animals while you are sick. If you are sick with COVID-19, avoid contact with your pet, including petting, snuggling, being kissed or licked, and sharing food. If you must care for your pet or be around animals while you are sick, wash your hands before and after you interact with pets and wear a face mask. Call ahead before visiting your doctor If you have a medical appointment, call the healthcare provider and tell them that you have or may have COVID-19. This will help the healthcare providers office take steps to keep other people from getting infected or exposed. Wear a face mask You should wear a face mask when you are around other people (e.g., sharing a room or vehicle) or pets and before you enter a healthcare providers office. If you are not able to wear a face mask (for example, because it causes trouble breathing), then people who live with you should not stay in the same room with you, or they should wear a face mask if they enter your room. Cover your coughs and sneezes Cover your mouth and nose with a tissue when you cough or sneeze. Throw used tissues in a lined trash can. Immediately wash your hands with soap and water for at least 20 seconds or, if soap and water are not available, clean your hands with an alcohol-based hand accounting tutor that contains at least 60% alcohol. Clean your hands often Wash your hands often with soap and water for at least 20 seconds, especially after blowing your nose, coughing, or sneezing; going to the bathroom; and before eating or preparing food. If soap and water are not readily available, use an alcohol-based hand accounting tutor with at least 60% alcohol, covering all surfaces of your hands and rubbing them together until they feel dry. Soap and water are the best option if hands are visibly dirty. Avoid touching your eyes, nose, and mouth with unwashed hands. Avoid sharing personal household items You should not share dishes, drinking glasses, cups, eating utensils, towels, or bedding with other people or pets in your home. After using these items, they should be washed thoroughly with soap and water. Clean all high-touch surfaces everyday High touch surfaces include counters, tabletops, doorknobs, bathroom fixtures, toilets, phones, keyboards, tablets, and bedside tables. Also, clean any surfaces that may have blood, stool, or body fluids on them. Use a household cleaning spray or wipe, according to the label instructions. Labels contain in structions for safe and effective use of the cleaning product including precautions you should take when applying the product, such as wearing gloves and making sure you have good ventilation during use of the product. Monitor your symptoms Seek prompt medical attention if your illness is worsening (e.g., difficulty breathing).Beforeseeking care, call your healthcare provider and tell them that you have, or are being evaluated for, COVID-19. Put on a face mask before you enter the facility. These steps will help the healthcare providers office to keep other people in the office or waiting room from getting infected or exposed. Ask your healthcare provider to call the local or state health department. Persons who are placed under active monitoring or facilitated self- monitoring should follow instructions provided by their local health department or occupational health professionals, as appropriate. When working with your local health department check their available hours. If you have a medical emergency and need to call 911, notify the dispatch personnel that you have, or are being evaluated for COVID-19. If possible, put on a face mask before emergency medical services arrive. Discontinuing home isolation Patients with confirmed COVID-19 should remain under home isolation precautions until the risk of secondary transmission to others is thought to be low. The decision to discontinue home isolation precautions should be made on a [id number] basis, in consultation with healthcare providers and [facility] health departments. Pending Studies at Discharge: No Stand-Alone Forms: [facility] [place], Smoking Cessation Medications and DC Order Prescriptions: New albuterol sulfate [Ventolin HFA] 90 mcg/actuation Hfa Aerosol Inhaler 2 puff inhalation Q4H PRN (Reason: shortness of breath or wheezing) 30 Days Qty: 1 RF: 0 dexamethasone 6 mg tablet 6 mg PO DAILY Qty: 7 RF: 0 Continued lisinopril-hydrochlorothiazide 20-25 mg Tablet 1 tab PO DAILY RF: 0 Discharge Orders: Discharge Order (Routine); Ordered 06/25/20 Ordered By: Naif Xiao Admission Data Admit Date/Time: 06/23/20 20:27 Attending Provider: Naif Xiao Admit Provider: Pipo Brown Primary Care Provider: Chriss Enciso Other Providers: Pipo Brown Other Interventions: Discharge Summary Assessment (RN) Last Done: 06/25/20 10:56
== END 2020-06-25 12:19 | disposition home or self-care (01) | DRG 177 ==
LOC: ED 16:15 → 2W 20:27

== ENCOUNTER 2020-10-16 00:21 | Observation (INO) ==
[2020-10-16 00:51] LABS: Basophils # (auto) 0.03 K/uL (0-0.2); Basophils % (auto) 0.2 %; Eosinophils # (auto) 0.19 K/uL (0-0.5); Eosinophils % (auto) 1.2 %; Hematocrit (blood only) 42.5 % (42-52); Hemoglobin 14.5 g/dL (14.0-18.0); Immature Granulocytes # (auto) 0.06 K/uL (0.00-0.02); Immature Granulocytes % (auto) 0.4 %; Lymphocytes # (auto) 4.86 K/uL (1.2-3.4); Lymphocytes % (auto) 31.1 %; Mean Corpuscular Hemoglobin 28.7 pg (25-34); Mean Corpuscular Hgb Conc 34.1 g/dL (32-36); Mean Platelet Volume 11.1 fL (7.4-10.4); Monocytes # (auto) 1.66 K/uL (0.11-0.59); Monocytes % (auto) 10.6 %; Neutrophils # (auto) 8.84 K/uL (1.4-6.5); Neutrophils % (auto) 56.5 %; Platelet Count 226 K/uL (130-400); RDW Coefficient of Variation 13.7 % (11.5-14.5); RDW Standard Deviation 41.9 fL (36.4-46.3); Red Blood Count 5.06 M/uL (4.7-6.1); White Blood Count 15.64 K/uL (4.8-10.8)
[2020-10-16] MEDS ORDERED: KETOROLAC TROMETHAMINE 15 MG/ML VIAL IV STA (00:53)
[2020-10-16 01:16] LABS: Appearance Urine Clear (Clear); Bilirubin Urine Negative (Negative); Blood Urine Negative (Negative); Color Urine Yellow; Glucose Urine UA Negative (Negative); Ketones Urine Negative (Negative); Leukocyte Esterase Urine Negative (Negative); Nitrite Urine Negative (Negative); Protein Urine Negative (Negative); Specific Gravity Urine 1.021 (1.000-1.030); Urobilinogen Urine Negative (Negative)
[2020-10-16 01:21] LABS: Albumin Globulin Ratio 0.9 (0.9-2); Albumin Level 3.9 gm/dl (3.4-5.0); BUN Creatinine Ratio 11.8 (10-20); Bilirubin,Total 0.3 mg/dl (0.2-1); Calcium 9.2 mg/dl (8.5-10.1); Creatinine Clr Calc Pharmacy 163.4 ml/min; Est GFR (African American) 105.9; Est GFR (Non-African American) 91.4; Globulin 4.2 gm/dl (2.5-4.0); Potassium 4.4 mmol/L (3.5-5.1); Total Protein 8.1 gm/dl (6.4-8.2)
--- NOTE | 2020-10-16 01:22 | Emergency Department Note ---
History of Present Illness General Chief complaint: Abdominal Pain Stated complaint: LOWER RIGHT SIDED PAIN,NAUSEA,CHILLS Time Seen by Provider: 10/16/20 00:28 Source: patient Mode of arrival: ambulatory Limitations: no limitations History of Present Illness Maximum Pain Intensity: 8 This patient is a 30-year-old male who presents to the emergency department for evaluation of right lower quadrant abdominal pain. Patient reports that after work today, he felt somewhat gassy but did not have significant pain at that time. He reports that this evening, he woke up with a sharp pain in his right lower abdomen. He had some chills. He denies fevers. He was nauseous but did not vomit. He states that his nausea is better at this time. He rates his discomfort a 7/10. He denies any changes in bowel movements. Home Medications Medication Instructions Recorded Confirmed Type lisinopril-hydrochlorothiazide 1 tab PO DAILY 06/05/19 10/16/20 History Allergies Allergy/AdvReac Type Severity Reaction Status Date / Time No Known Allergies Allergy Verified 10/16/20 00:47 Past Med/Surg History Medical History HTN (hypertension) Surgical History No pertinent past surgical history Social History Smoking Status: Never smoker Hx Alcohol Use: No Hx Substance Use: No Preferred Language: Greek Communication Ability: Effective Beliefs That Will Affect Care: None Current Living Situation: Spouse and Family Feels Safe at Home: Yes Assistive Devices: Glasses Review of Systems A total of 10 systems reviewed and were otherwise negative Physical Exam Vital Signs Vital Signs - 24 hr 10/16/20 00:25 10/16/20 01:47 10/16/20 02:46 Temperature 36.3 C L Temperature Source Temporal Artery Scan Pulse Rate 89 Pulse Rate [Right Finger] 85 79 Respiratory Rate 18 16 16 Respiratory Effort / Characteristics Respiratory Depth Normal Blood Pressure 158/102 H Blood Pressure [Left Arm] 118/79 118/79 Blood Pressure Mean 120 Blood Pressure Mean [Left Arm] 92 92 Blood Pressure Position [Left Arm] Pulse Oximetry 96 96 97 Oxygen Delivery Method Room Air Room Air Oxygen Flow Rate Sepsis Recent Fever Within 48 Hours No Sepsis New/Unexplained Change in Mental Status N/A Sepsis Action Taken by Nursing No Action Required 10/16/20 06:03 10/16/20 06:10 10/16/20 06:20 Temperature 36.6 C 36.6 C 36.6 C Temperature Source Oral Oral Oral Pulse Rate Pulse Rate [Right Finger] 95 H 85 81 Respiratory Rate 18 18 18 Respiratory Effort / Characteristics Non-Labored Spontaneous Non-Labored Spontaneous Non-Labored Spontaneous Respiratory Depth Normal Normal Normal Blood Pressure Blood Pressure [Left Arm] 160/91 H 145/75 H 152/92 H Blood Pressure Mean Blood Pressure Mean [Left Arm] 114 98 112 Blood Pressure Position [Left Arm] Lying Lying Lying Pulse Oximetry 91 94 96 Oxygen Delivery Method Oxymask Nasal Cannula Nasal Cannula Oxygen Flow Rate 2 2 2 Sepsis Recent Fever Within 48 Hours Sepsis New/Unexplained Change in Mental Status Sepsis Action Taken by Nursing VITALS: Vitals are noted on the nurse's note and reviewed by myself. GENERAL: This is a 30-year-old male, in no acute distress, well-developed well-nourished. SKIN: The skin was without rashes. EARS: External auditory canals clear, tympanic membranes pearly dorantes without erythema or effusion bilaterally. EYES: Pupils equal round and reactive to light and accommodation. MOUTH: Mucous membranes moist. Tonsils are not enlarged. Pharynx without eryth yelena or exudate. NECK: Supple without nuchal rigidity. No lymphadenopathy. No thyromegaly. Cervical spine is nontender. No JVD. HEART: Regular rate and rhythm without murmurs gallops or rubs. LUNGS: Clear to auscultation bilaterally without wheezes, rales or rhonchi. ABDOMEN: Positive bowel sounds x 4. Soft, moderate tenderness in the right lower quadrant. No guarding or rebound tenderness. NEURO: Patient was alert and oriented to person place and time. Course Consultations Consultation #1: Dr. Duggan - general surgery Administered Medications Discontinued Medications Bacitracin (Bacitracin Oint 15 Gm Tube) Confirm Administered Dose 45 appln .ROUTE .[employer] ONE Stop: 10/16/20 05:29 Last Admin: 10/16/20 05:43 Dose: 1 appln Documented by: [id number] Bupivacaine HCl (Bupivacaine 0.5 % 5 Mg/1 Ml Mpf 30ml Vial) Confirm Administered Dose 30 ml .ROUTE .[employer] ONE Stop: 10/16/20 06:11 Last Admin: 10/16/20 05:30 Dose: 20 ml Documented by: [id number] Cefoxitin Sodium (Mefoxin) 2,000 mg in 60 mls @ 100 mls/hr IV NOW STA Stop: 10/16/20 03:37 Last Admin: 10/16/20 03:21 Dose: 100 mls/hr Documented by: [id number] Ioversol (Optiray 320 125ml) 125 ml IV ONCE ONE Stop: 10/16/20 01:50 Last Admin: 10/16/20 01:49 Dose: 119 ml Documented by: [id number] Ketorolac Tromethamine (Ketorolac Tromethamine 15 Mg/Ml Vial) 15 mg IV NOW STA Stop: 10/16/20 00:54 Last Admin: 10/16/20 01:07 Dose: 15 mg Documented by: [id number] Lidocaine HCl (Lidocaine Hcl 1% 20 Ml Vial) Confirm Administered Dose 20 ml .ROUTE .[facility] ONE Stop: 10/16/20 06:12 Last Admin: 10/16/20 05:30 Dose: 20 ml Documented by: [id number] Medical Decision Making Differential Diagnosis Differential diagnosis includes appendicitis, diverticulitis, bowel obstruction, inflammatory bowel disease, renal colic, PUD, biliary pathology, pancreatitis, mesenteric ischemia, aortic pathology, infection, genitourinary, UTI, perforated viscus, among others. Home Medications Current Medication List: was personally reviewed by me Laboratory Data Attestation: I reviewed the patient's lab results. Result diagrams: 10/16/20 00:44 10/16/20 00:44 Lab Results 10/16/20 10/16/20 10/16/20 Range/Units 00:44 00:44 01:04 WBC 15.64 H (4.8-10.8) K/uL RBC 5.06 (4.7-6.1) M/uL Hgb 14.5 (14.0-18.0) g/dL Hct 42.5 (42-52) % MCV 84.0 (80-100) fL MCH 28.7 (25-34) pg MCHC 34.1 (32-36) g/dL RDW Std Deviation 41.9 (36.4-46.3) fL RDW Coeff of Lenin 13.7 (11.5-14.5) % Plt Count 226 (130-400) K/uL MPV 11.1 H (7.4-10.4) fL Immature Gran % (Auto) 0.4 % Neut % (Auto) 56.5 % Lymph % (Auto) 31.1 % [place] % (Auto) 10.6 % Eos % (Auto) 1.2 % Baso % (Auto) 0.2 % Neut # (Auto) 8.84 H (1.4-6.5) K/uL Lymph # (Auto) 4.86 H (1.2-3.4) K/uL [place] # (Auto) 1.66 H (0.11-0.59) K/uL Eos # (Auto) 0.19 (0-0.5) K/uL Baso # (Auto) 0.03 (0-0.2) K/uL Immature Gran # (Auto) 0.06 H (0.00-0.02) K/uL Sodium 140 (136-145) mmol/L Potassium 4.4 (3.5-5.1) mmol/L Chloride 109 H (98-107) mmol/L Carbon Dioxide 26 (21-32) mmol/L Anion Gap 5.0 (3-11) BUN 13 (7-18) mg/dl Creatinine 1.07 (0.6-1.4) mg/dl Est Cr Clr Drug Dosing 163.4 ml/min Est GFR ( Amer) 105.9 Est GFR (Non-Af Amer) 91.4 BUN/Creatinine Ratio 11.8 (10-20) Glucose 92 (70-99) mg/dl Calcium 9.2 (8.5-10.1) mg/dl Total Bilirubin 0.3 (0.2-1) mg/dl AST 21 (15-37) U/L ALT 30 (12-78) U/L Alkaline Phosphatase 66 (45-117) U/L Total Protein 8.1 (6.4-8.2) gm/dl Albumin 3.9 (3.4-5.0) gm/dl Globulin 4.2 H (2.5-4.0) gm/dl Albumin/Globulin Ratio 0.9 (0.9-2) Lipase 65 L (73-393) U/L Specimen Hemolysis Urine Color Yellow Urine Appearance Clear (Clear) Urine pH 5.0 (4.5-7.5) Ur Specific [place] 1.021 (1.000-1.030) Urine Protein Negative (Negative) Urine Glucose (UA) Negative (Negative) Urine Ketones Negative (Negative) Urine Blood Negative (Negative) Urine Nitrite Negative (Negative) Urine Bilirubin Negative (Negative) Urine Urobilinogen Negative (Negative) Ur Leukocyte Esterase Negative (Negative) COVID-19 Eval Order SARS-CoV-2 (PCR) (Negative) Influenza Type A (PCR) (Neg) Influenza Type B (PCR) (Neg) RSV (RT-PCR) (Neg) 10/16/20 10/16/20 Range/Units Unknown Unknown WBC (4.8-10.8) K/uL RBC (4.7-6.1) M/uL Hgb (14.0-18.0) g/dL Hct (42-52) % MCV (80-100) fL MCH (25-34) pg MCHC (32-36) g/dL RDW Std Deviation (36.4-46.3) fL RDW Coeff of Lenin (11.5-14.5) % Plt Count (130-400) K/uL MPV (7.4-10.4) fL Immature Gran % (Auto) % Neut % (Auto) % Lymph % (Auto) % [place] % (Auto) % Eos % (Auto) % Baso % (Auto) % Neut # (Auto) (1.4-6.5) K/uL Lymph # (Auto) (1.2-3.4) K/uL [place] # (Auto) (0.11-0.59) K/uL Eos # (Auto) (0-0.5) K/uL Baso # (Auto) (0-0.2) K/uL Immature Gran # (Auto) (0.00-0.02) K/uL Sodium (136-145) mmol/L Potassium (3.5-5.1) mmol/L Chloride (98-107) mmol/L Carbon Dioxide (21-32) mmol/L Anion Gap (3-11) BUN (7-18) mg/dl Creatinine (0.6-1.4) mg/dl Est Cr Clr Drug Dosing ml/min Est GFR ( Amer) Est GFR (Non-Af Amer) BUN/Creatinine Ratio (10-20) Glucose (70-99) mg/dl Calcium (8.5-10.1) mg/dl Total Bilirubin (0.2-1) mg/dl AST (15-37) U/L ALT (12-78) U/L Alkaline Phosphatase (45-117) U/L Total Protein (6.4-8.2) gm/dl Albumin (3.4-5.0) gm/dl Globulin (2.5-4.0) gm/dl Albumin/Globulin Ratio (0.9-2) Lipase (73-393) U/L Specimen Hemolysis Urine Color Urine Appearance (Clear) Urine pH (4.5-7.5) Ur Specific [place] (1.000-1.030) Urine Protein (Negative) Urine Glucose (UA) (Negative) Urine Ketones (Negative) Urine Blood (Negative) Urine Nitrite (Negative) Urine Bilirubin (Negative) Urine Urobilinogen (Negative) Ur Leukocyte Esterase (Negative) COVID-19 Eval Order [facility]sv at [facility] SARS-CoV-2 (PCR) NEGATIVE (Negative) Influenza Type A (PCR) Negative (Neg) Influenza Type B (PCR) Negative (Neg) RSV (RT-PCR) Negative (Neg) Imaging Data Attestation: I personally reviewed and interpreted this imaging study as follows: Radiologist's Impression: CT ABDOMEN & PELVIS With Contrast: Appendix prominent measuring 1.2 cm. Trace periappendiceal fat stranding. Findings consistent with acute appendicitis. No perforation or abscess. Radiologist: Henry De La Cruz MD MDM Narrative Continuous leather stitcher: Order was placed for continuous leather stitcher. Patient was placed on the leather stitcher. Patient was noted to be in normal sinus rhythm at an initial rate of 89 bpm. The patient is a 30-year-old male who presents today complaining of right lower quadrant abdominal pain. Labs revealed a leukocytosis of 15,000. Labs were otherwise unremarkable. CT was suggestive of acute appendicitis. General surgery was consulted and agreed to evaluate the patient. Patient will be taken to the OR for operative management. Impression & Plan Acute appendicitis Discharge Plan Visit Data Chief Complaint: Abdominal Pain Stated Complaint: LOWER RIGHT SIDED PAIN,NAUSEA,CHILLS ED Provider: Candice Schwartz ED Midlevel Provider: Jeny Rowe Discharge Problem: Acute appendicitis Discharge Instructions Interventions: ED Discharge Assessment Last Done: 10/16/20 04:00 Discharge Problem: Acute appendicitis Qualifiers: Acute appendicitis type: with localized peritonitis Appendicitis gangrene presence: unspecified whether gangrene present Appendicitis perforation presence: without perforation Appendicitis abscess presence: without abscess Qualified Code(s): K35.30 - Acute appendicitis with localized peritonitis, without perforation or gangrene
[2020-10-16] MEDS ORDERED: OPTIRAY 320 125ml IV ONE (01:49)
[2020-10-16] MEDS ORDERED: cefOXitin 2,000 MG/60 ML BAG IV STA (03:02)
--- NOTE | 2020-10-16 03:12 | Surgery Consultation ---
Date of Consultation October 16, 2020 Assessment & Plan (1) Acute appendicitis: pt is a 30 year-old male who presents to ER with 4 hours history RLQ Pain, IMP: acute appendicitis, Plan, I recommend to do laparoscopic appendectomy, possible open, D/W benefits, risks and alternatives of the surgery, the risks - infection, bleeding, abscess, injury bowel, bowel obstruction, incisional hernia, pt understood, he agrees with the surgery, I answered all questions, pre-op antibiotic Present on Admission?: Yes History of Present Illness History of Present Illness History of Present Illness General Chief complaint: Abdominal Pain Stated complaint: LOWER RIGHT SIDED PAIN,NAUSEA,CHILLS Time Seen by Provider: 10/16/20 2:55AM Source: patient Mode of arrival: ambulatory Limitations: no limitations History of Present Illness Maximum Pain Intensity: 8 This patient is a 30-year-old male who presents to the emergency department for evaluation of right lower quadrant abdominal pain. Patient reports that after work today, he felt somewhat gassy but did not have significant pain at that time. He reports that this evening, he woke up with a sharp pain in his right lower abdomen. He had some chills. He denies fevers. He was nauseous but did not vomit. He states that his nausea is better at this time. He rates his discomfort a 7/10. He denies any changes in bowel movements. I ( Allison Duggan MD ) got a call for consult appendicitis, I reviewed pt's H/P, labs, CT scan with pt, pt is still have RLQ pain with nausea and diarrhea. Home Medications Medication Instructions Recorded Confirmed Type lisinopril-hydrochlorothiazide 1 tab PO DAILY 06/05/19 10/16/20 History Allergies Allergy/AdvReac Type Severity Reaction Status Date / Time No Known Allergies Allergy Verified 10/16/20 00:47 Past Med/Surg History Medical History HTN (hypertension) Surgical History No pertinent past surgical history Social History Smoking Status: Never smoker Hx Alcohol Use: No Hx Substance Use: No Preferred Language: Israeli Communication Ability: Effective Beliefs That Will Affect Care: None Current Living Situation: Spouse and Family Feels Safe at Home: Yes Assistive Devices: Glasses Review of Systems A total of 10 systems reviewed and were otherwise negative Allergies Allergy/AdvReac Type Severity Reaction Status Date / Time No Known Allergies Allergy Verified 10/16/20 00:47 Home Medications Medication Instructions Recorded Confirmed Type lisinopril-hydrochlorothiazide 1 tab PO DAILY 06/05/19 10/16/20 History Patient History Medical History HTN (hypertension) Surgical History No pertinent past surgical history Social History Smoking Status: Never smoker Hx Alcohol Use: No Hx Substance Use: No Preferred Language: Israeli Communication Ability: Effective Beliefs That Will Affect Care: None Current Living Situation: Spouse and Family Feels Safe at Home: Yes Assistive Devices: Glasses Review of Systems Review of Systems: All systems reviewed & are unremarkable except as noted in HPI & below Constitutional: as per Subjective / HPI obesity Eyes: as per Subjective / HPI Ear, Nose, Mouth, Throat: as per Subjective / HPI Respiratory: as per Subjective / HPI Cardiovascular: as per Subjective / HPI Additional Comments: HTN Gastrointestinal: as per Subjective / HPI Genitourinary: + as per Subjective / HPI Musculoskeletal: as per Subjective / HPI Integumentary: as per Subjective / HPI Neurologic: as per Subjective / HPI Psychiatric: as per Subjective / HPI Endocrine: as per Subjective / HPI Hematologic / Lymphatic: as per Subjective / HPI Allergy / Immunological: as per Subjective / HPI Physical Exam Constitutional: WD/WN, vitals as above well developed, well nourished and + obese Eyes: PERRL, conjunctivae normal, anicteric sclerae ENMT: external ear and nose normal, oropharynx normal Neck: trachea midline, no thyromegaly Respiratory: normal respiratory effort, lungs clear to auscultation normal respiratory effort Cardiovascular: RRR, no murmur, no edema Rate/Rhythm: regular rate and r egular rhythm Gastrointestinal (Abdomen): Percussion/Palpation: + abdomen tender and abdomen soft tenderness at RLQ, with mild rebound pain, no distend, BS + Musculoskeletal: no cyanosis or clubbing, extremities motor strength 5/5 Skin: no rashes, warm and dry Neurologic: awake Psychiatric: Orientation: alert and oriented x 3 Results & Data ([facility]) Vital Signs (Past 12 Hours) Vital Signs Temp Pulse Pulse Resp BP BP Pulse Ox 10/16/20 02:46 79 16 118/79 97 10/16/20 01:47 85 16 118/79 96 10/16/20 00:25 36.3 C L 89 18 158/102 H 96 Laboratory Results Abnormal lab results 10/16/20 10/16/20 Range/Units 00:44 00:44 WBC 15.64 H (4.8-10.8) K/uL MPV 11.1 H (7.4-10.4) fL Neut # (Auto) 8.84 H (1.4-6.5) K/uL Lymph # (Auto) 4.86 H (1.2-3.4) K/uL [place] # (Auto) 1.66 H (0.11-0.59) K/uL Immature Gran # (Auto) 0.06 H (0.00-0.02) K/uL Chloride 109 H (98-107) mmol/L Globulin 4.2 H (2.5-4.0) gm/dl Lipase 65 L (73-393) U/L Diagnostic Findings CT scan abd + pelvis, diagnosis- appendicitis,
--- NOTE | 2020-10-16 03:16 | History & Physical Bridge Note ---
Date of Service October 16, 2020 History & Physical Bridge Note I have examined the patient, reviewed the History & Physical and in the interval since the performance of the History & Physical I have noted the following changes of clinical significance: no changes noted
[2020-10-16 03:34] LABS: Influenza A virus by PCR Negative (Neg); Influenza B virus by PCR Negative (Neg); RSV by PCR Negative (Neg); SARS CoV2 RNA(COVID-19) InHosp NEGATIVE (Negative)
[2020-10-16] MEDS ORDERED: fentaNYL citrate 100 MCG/2 ML VIAL IV PRN (03:44)
[2020-10-16] MEDS ORDERED: ePHEDrine sulfate 50 MG/ML AMP IV PRN (03:44)
[2020-10-16] MEDS ORDERED: ONDANSETRON INJ 2 MG/ML 2 ML VIAL IV PRN (03:44)
[2020-10-16] MEDS ORDERED: ATROPINE SULFATE 0.1 MG/ML 10ML SYR IV PRN (03:44)
--- NOTE | 2020-10-16 03:44 | Anesthesiology Consultation ---
Date of Service October 16, 2020 Assessment & Plan (1) Encounter for pre-operative examination: Chart Review Chart Review: horticultural nursery assistant initiated History Height/Weight Height: 6 ft Weight: 175 kg Allergies Allergy/AdvReac Type Severity Reaction Status Date / Time No Known Allergies Allergy Verified 10/16/20 00:47 Medications Home Medications Medication Instructions Recorded Confirmed Last Taken lisinopril-hydrochlorothiazide 1 tab PO DAILY 06/05/19 10/16/20 10/15/20 NPO Date Last Intake of Fluids: 10/15/20 Time Last Intake of Fluids: 21:00 Date Last Intake of Solids: 10/15/20 Time Last Intake of Solids: 16:00 Past Medical History Medical History HTN (hypertension) Past Surgical History Surgical History No pertinent past surgical history Social History Smoking Status: Never smoker Hx Alcohol Use: No Hx Substance Use: No substance use type: does not use Physical Exam Vital Signs Last Vital Signs Temp 97.3 F L 10/16/20 00:25 Pulse 79 10/16/20 02:46 Resp 16 10/16/20 02:46 BP 118/79 10/16/20 02:46 Pulse Ox 97 10/16/20 02:46 Testing Laboratory Results 10/16/20 00:44 10/16/20 00:44 Urine Color Yellow 10/16/20 01:04 Urine Appearance Clear (Clear) 10/16/20 01:04 Urine pH 5.0 (4.5-7.5) 10/16/20 01:04 Ur Specific [place] 1.021 (1.000-1.030) 10/16/20 01:04 Urine Protein Negative (Negative) 10/16/20 01:04 Urine Glucose (UA) Negative (Negative) 10/16/20 01:04 Urine Ketones Negative (Negative) 10/16/20 01:04 Urine Nitrite Negative (Negative) 10/16/20 01:04 Ur Leukocyte Esterase Negative (Negative) 10/16/20 01:04 Electrocardiogram Date: 06/24/20 Normal sinus rhythm, rate 82 bpm Nonspecific T wave abnormality Abnormal ECG When compared with ECG of 23-JUN-2020 16:56, (unconfirmed) No significant change was found Confirmed by Shahab Carter ([id number]) on 06/25/2020 6:45:13 AM
[2020-10-16] MEDS ORDERED: SUCCINYLCHOLINE CHLORIDE 20 MG/ML 10 ML VIAL IV ONE (03:52)
[2020-10-16] MEDS ORDERED: LIDOCAINE HCL 2% 2 ML VIAL/AMP(20MG/ML) INFIL ONE (03:52)
[2020-10-16] MEDS ORDERED: fentaNYL citrate 100 MCG/2 ML VIAL ONE ×3 (03:52→05:22)
[2020-10-16] MEDS ORDERED: PROPOFOL IV EMULSION 10 MG/ML 20 ML VIAL IV ONE (03:52)
[2020-10-16] MEDS ORDERED: ROCURONIUM BROMIDE 10 MG/ML 5 ML VIAL IV ONE (05:27)
[2020-10-16] MEDS ORDERED: GLYCOPYRROLATE 0.2 MG/ML VIAL ONE (05:27)
[2020-10-16] MEDS ORDERED: NEOSTIGMINE METHYLSULFATE 5 MG/5 ML SYR ONE (05:27)
[2020-10-16] MEDS ORDERED: BACITRACIN OINT 15 GM TUBE ONE (05:28)
--- NOTE | 2020-10-16 05:43 | Post Operative Brief Note ---
Immediate Post Op Note v1 Date of Surgery October 16, 2020 Pre & Post Diagnosis Operation Date: 10/16/20 04:30 Pre-Op Diagnosis: acute appendicitis Post-Op Diagnosis: acute appendicitis I identified the patient and participated in the time-out.: Yes Procedure Operation Date: 10/16/20 04:30 Actual Procedures p Laparoscopic Appendectomy(Not Applicable) - Allison Duggan MD Surgeon Allison Duggan MD Nutritional Health Coach director surgical Estimated Blood Loss 10 Findings Consistent with Post-Op Diagnosis Fluids 1100ml Specimens appendix Anesthesia Type General Complications none Disposition Accompanied Patient To Recovery: Yes Disposition: Recovery Room Overlapping Procedure I was immediately available: during the entire case.
[2020-10-16] MEDS ORDERED: BUPIVACAINE 0.5 % 5 MG/1 ML MPF 30ML VIAL ONE (06:10)
[2020-10-16] MEDS ORDERED: LIDOCAINE HCL 1% 20 ML VIAL ONE (06:11)
--- NOTE | 2020-10-16 06:15 | Anesthesiology Progress Note ---
Date of Service October 16, 2020 Anesthesia Post Procedure Vital Signs Vital Signs: Temp Pulse Pulse Resp BP BP Pulse Ox 10/16/20 06:10 97.9 F 85 18 145/75 H 94 10/16/20 06:03 97.9 F 95 H 18 160/91 H 91 10/16/20 02:46 79 16 118/79 97 10/16/20 01:47 85 16 118/79 96 10/16/20 00:25 97.3 F L 89 18 158/102 H 96 Pain Intensity Right Lower Abdomen: Pain Intensity: 6 Transfer of Care Handoff Completed per policy Notes Mental Status: alert / awake / arousable and participated in evaluation Patient Amnestic to Procedure: Yes Nausea / Vomiting: adequately controlled Pain: adequately controlled Airway Patency, RR, SpO2: stable & adequate BP & HR: stable & adequate Hydration State: stable & adequate Anesthetic Complications: no major complications apparent and Pt Satisfied with anesthetic care
[2020-10-16] MEDS ORDERED: HYDROmorphone INJ 1 MG/ML SYRINGE IV PRN (06:44)
[2020-10-16] MEDS ORDERED: LACTATED RINGER'S 1,000 ML IV SCH (06:44)
[2020-10-16] MEDS ORDERED: oxyCODONE/ACETAMINOPHEN 5mg/325mg TAB PO PRN (06:44)
--- NOTE | 2020-10-16 07:23 | CT Scan Report ---
CT abd pelvis IV con only CLINICAL HISTORY: Right lower quadrant abdominal pain COMPARISON STUDY: Gallbladder ultrasound performed July 2017 TECHNIQUE: The patient was scanned in a dynamic helical fashion during intravenous administration of 119 cc of Optiray 320 A dose lowering technique was utilized adhering to the principles of ALARA. CT DOSE: 2289.39 mGy.cm FINDINGS: Lower chest: The heart is normal in size and configuration, without pericardial effusion. The lung ba ses and pleural spaces are clear. Liver: There is hepatic steatosis. No focal masses are visualized. The hepatic and portal veins appea r patent Gallbladder: Unremarkable. Spleen: Normal in size and attenuation. Pancreas: Unremarkable. Adrenal glands: Unremarkable. Kidneys: There is a punctate nonobstructing lower pole right renal calculus. There is no hydronephros is. No solid renal masses are visualized. Bowel: There are no transition zones indicate bowel obstruction. There is no evidence of acute divert iculitis. The appendix is dilated measuring 12 mm in maximal diameter. Assessment of the periappendic eal fat is slightly limited due to the patient's body habitus and technical limitations of the examin ation. In the setting of right lower quadrant abdominal pain, the findings must be viewed as suspicio us for early acute appendicitis. Peritoneum: There is no intraperitoneal free air or abdominal ascites. Vasculature: The abdominal aorta is normal in course and caliber. Adenopathy: None. Pelvic viscera: The uterus is surgically absent. Skeletal structures: No destructive osseous lesions are seen. IMPRESSION: 1. No evidence of bowel obstruction. No evidence of free air 2. Hepatic steatosis 3. Dilated appendix measuring 12 mm. In the setting of right lower quadrant abdominal pain, the findi ngs must be viewed as suspicious for an early acute appendicitis ACT 112: Negative or not required by law. Electronically signed by: Antwon Mohamud M.D. 10/16/2020 7:22 AM
[2020-10-16] MEDS ORDERED: LISINOPRIL/HCTZ 20/25MG 1 TAB PO SCH (09:00)
[2020-10-16] MEDS ORDERED: ACETAMINOPHEN 325 MG TAB PO PRN (09:31)
--- NOTE | 2020-10-16 12:30 | Operative Report (OR) ---
DATE OF OPERATION: 10/16/2020 PREOPERATIVE DIAGNOSIS: Acute appendicitis. POSTOPERATIVE DIAGNOSIS: Acute appendicitis. OPERATIVE PROCEDURE: Laparoscopic appendectomy. SURGEON: Allison Duggan MD. ANESTHESIA: General. ESTIMATED BLOOD LOSS: About 10 mL. FINDINGS: Acute appendicitis. COMPLICATIONS: None. INDICATIONS FOR THE PROCEDURE: This is a 30-year-old gentleman who presented to ED with a 4-hour history of right lower quadrant pain and the patient had a CT scan diagnosis of acute appendicitis. I recommended to do laparoscopic appendectomy, possible open. I did talk to the patient about the benefit, the risk, alternate procedure. I indicated the risks may include but not limited to such as bleeding, infection, abscess, injury to the bowel, bowel obstruction, incisional hernia. The patient understands. He signed informed consent and I answered all questions. DETAILS OF PROCEDURE: After we identified the patient and verified the procedure, we brought the patient to the OR, put the patient in the supine position. The patient received SCD on bilateral legs to prevent DVT. Also, patient received 3 g of cefoxitin IV for prophylactic antibiotic. The patient received general anesthesia without difficulties. The abdomen was prepped and draped in routine sterile fashion. After time-out, I injected local anesthesia by using 1% lidocaine mixed with 0.5% Marcaine just above the umbilicus, then I made a small incision just above the umbilicus, opened fascia and opened peritoneum under direct vision, put a Vickie trocar in, connected to CO2 to create pneumoperitoneum, flow rate at 6 liters per minute, pressure not more than 14 mmHg. Once we got a nice pneumoperitoneum, we put the camera in, looked around the abdomen, shows normal finding on the small bowel, large bowel and at this moment, we put another two 5 mm trocars in the left lower quadrant area and then we mobilized the cecum area. Then we found the patient had acute appendicitis with appendix enlarged, size about 1.2 cm in diameter with swelling and inflammation. Once we confirmed the diagnosis of acute appendicitis, then I used the harmonic to take down appendiceal, rechecked, no active bleeding. Then I used a 45 mm Endo-ALLIE stapler for transection on the base of the appendix, rechecked the staple line, intact and no active bleeding, no leak. Then we removed the appendix through the catch bag. Then we reinserted the Vickie trocar in, connected to CO2 to create pneumoperitoneum, again looked around the abdomen, no active bleeding, no leak from staple line, no free flow on the pelvic area. Then we removed all trocars under direct vision. No active bleeding from the trocar sites. Pneumoperitoneum was released. Then I closed the umbilical incision fascial layer by using 0 Vicryl [id number] x2, closed subcutaneous layer by using 2-0 Vicryl interruptedly, closed skin by using 4-0 Vicryl continuous running. Then we closed another two 5 mm trocar site skin only by using 4-0 Vicryl. Then, we put the dressing on. The patient tolerated the procedure well. All instrument, needle and sponge count were correct x2 at the end of the case. The patient was transferred to recovery room in stable condition. After the procedure, I did talk to the patient and also talked to the about the OR finding and the procedure we did, they understand. I attest to the content of the Intraoperative Record and any orders documented therein. Any exception s are noted below.
--- NOTE | 2020-10-16 13:23 | Surgery Progress Note ---
Date of Service F/U S/P laparoscopic appendectomy, POD 7 hours, pt is doing fine, no significant abdominal pain, tolerated clear diet, no nausea, no vomiting, October 16, 2020 Assessment & Plan (1) Acute appendicitis: pt is a 30 year-old male who presents to ER with 4 hours history RLQ Pain, IMP: acute appendicitis, Plan, I recommend to do laparoscopic appendectomy, possible open, D/W benefits, risks and alternatives of the surgery, the risks - infection, bleeding, abscess, injury bowel, bowel obstruction, incisional hernia, pt understood, he agrees with the surgery, I answered all questions, pre-op antibiotic 10/16/2020 1;@!PM, F/U S/P lap appy doing fine, I inform pt about OR finding and the procedure pt had, pt understood, I answered all questions, pt wants to go home today, the post-op care instruction was given, F/U 2 weeks, Admission and Anticipated Discharge Date Admission Date: October 16, 2020 Review of Systems Constitutional: as per Subjective / HPI obesity Eyes: as per Subjective / HPI Ear, Nose, Mouth, Throat: as per Subjective / HPI Respiratory: as per Subjective / HPI Cardiovascular: as per Subjective / HPI Additional Comments: HTN Gastrointestinal: as per Subjective / HPI Genitourinary: + as per Subjective / HPI Musculoskeletal: as per Subjective / HPI Integumentary: as per Subjective / HPI Neurologic: as per Subjective / HPI Psychiatric: as per Subjective / HPI Endocrine: as per Subjective / HPI Hematologic / Lymphatic: as per Subjective / HPI Allergy / Immunological: as per Subjective / HPI Physical Exam Constitutional: WD/WN, vitals as above well developed, well nourished and + obese Eyes: PERRL, conjunctivae normal, anicteric sclerae ENMT: external ear and nose normal, oropharynx normal Neck: trachea midline, no thyromegaly Respiratory: normal respiratory effort, lungs clear to auscultation normal respiratory effort Cardiovascular: RRR, no murmur, no edema Rate/Rhythm: regular rate and regular rhythm Gastrointestinal (Abdomen): normal bowel sounds, soft, nontender, no hepatosplenomegaly Percussion/Palpation: + abdomen tender and abdomen soft mild tenderness at incision site, no rebound pain, no distend, BS + Musculoskeletal: no cyanosis or clubbing, extremities motor strength 5/5 Skin: no rashes, warm and dry Neurologic: awake Psychiatric: Orientation: alert and oriented x 3 Results & Data ([facility]) Vital Signs (Past 12 Hours) Vital Signs Temp Pulse Resp BP Pulse Ox 10/16/20 12:02 36.6 C 65 18 166/76 H 97 10/16/20 09:25 36.3 C L 72 18 144/87 H 96 10/16/20 08:27 36.6 C 75 16 127/73 100 10/16/20 07:08 36.5 C 66 16 135/85 96 10/16/20 06:30 36.6 C 82 16 151/85 H 95 10/16/20 06:20 36.6 C 81 18 152/92 H 96 10/16/20 06:10 36.6 C 85 18 145/75 H 94 10/16/20 06:03 36.6 C 95 H 18 160/91 H 91 10/16/20 02:46 79 16 118/79 97 10/16/20 01:47 85 16 118/79 96
--- NOTE | 2020-10-17 09:01 | Discharge Summary (DS) ---
ADMITTING DIAGNOSIS: Acute appendicitis. DISCHARGE DIAGNOSIS: Acute appendicitis. OPERATION: Laparoscopic appendectomy. SURGEON: Allison Duggan MD. DETAILS OF DISCHARGE SUMMARY: This is a 30-year-old gentleman who presented to ED with acute abdominal pain. The patient had a CT scan diagnosis of acute appendicitis. We took the patient to the OR. We did a laparoscopic appendectomy. The patient tolerated the procedure well and after procedure, the patient was transferred to regular floor. The patient is doing fine. He tolerated a clear diet. No nausea, no vomiting, good control of incision pain. PHYSICAL EXAMINATION: VITAL SIGNS: Temperature is 36.6, heart rate is 65, respiratory rate 18, blood pressure 166/76, O2 saturation 97% on room air. GENERAL: The patient is alert, awake, oriented x3. HEENT: With normal limitation. NEUROLOGIC: Intact. NECK: No JVD. CHEST: Bilateral lung sounds clear. HEART: Normal S1, S2. No murmur. ABDOMEN: Soft, mild tenderness on the incision site. No rebound or pain. Not distended. Bowel sounds positive. All incisions intact. EXTREMITIES: No edema. PLAN: The patient wanted to go home and I gave the patient postop care instruction. The patient understands. I will follow the patient in 2 weeks.
== END 2020-10-16 14:27 | disposition home or self-care (01) ==
LOC: ED 00:21 → OR 04:00 → 3E 04:00